=== PATIENT | male | born 1965 | race Caucasian/White ===

== ENCOUNTER 2020-11-07 16:59 | Inpatient (IN) | payer BC, SELFPAY ==
[2020-11-07] VITALS (12 sets, daily range): BP systolic 111–142; BP diastolic 65–81; PULSE 65–81; RESP 16–21; TEMP 36.6–37; O2SAT 89–100; BMI 30.9
--- NOTE | 2020-11-07 17:05 | PC.NURSE ---
1705 Metoprolol 25mg given PO 1708 Heparin 4000 U given IVP 1709 Brilinta [address] given PO Dr. Carbajal and Dr. Batres at bedside
--- NOTE | 2020-11-07 17:07 | ECG_ITS ---
Measurements Intervals [place] Rate: 66 P: 33 [place]: 155 QRS: 66 QRSD: 94 T: 35 QT: 398 QTc: 420 Interpretive Statements SINUS RHYTHM ANTEROLATERAL ST ELEVATION MYOCARDIAL INJURY- ACUTE INFERIOR ST ELEVATION MYOCARDIAL INJURY- ACUTE POSTERIOR INFARCT- ACUTE BASELINE ARTIFACT- II, III, AVF, V3-V6 ABNORMAL ECG Electronically Signed On 11-08-2020 7:01:36 CDT by Eusebio Guerrero D.O.
--- NOTE | 2020-11-07 17:07 | ED.CHESTPAIN ---
HPI - Chest Pain General Chief Complaint: Chest Pain Stated Complaint: STEMI Time Seen by Provider: 11/07/20 17:07 Source: patient and EMS Mode of arrival: EMS Limitations: no limitations History of Present Illness HPI narrative: Patient is a 55-year-old male who presents for evaluation of chest pain, STEMI called in field by EMS. Patient states chest pain has persisted over the past 2 hours with associated diaphoresis; began while he was working at home in his garden. Pain crushing in nature, rated 5/10 in severity. At the time of EMS arrival, patient is diaphoretic, reporting central chest pain. Pt given morphine, zofran, aspirin by EMS. Not much improvement in pain with morphine. Per patient, no ripping or tearing sensation to the flanks. No history of coronary artery disease. Patient does not smoke. He is not lightheaded or dizzy. Related Data Home Medications Medication Instructions Recorded Confirmed No Home Medications 11/07/20 11/07/20 Allergies Allergy/AdvReac Type Severity Reaction Status Date / Time No Known Allergies Allergy Unverified 11/07/20 17:13 Review of Systems Review of Systems: Narrative: CONSTITUTIONAL: Denies fever, chills, reports feeling sweaty ENT: Denies rhinorrhea, congestion, sore throat, or otalgia. CARDIOVASCULAR: Reports chest pain RESPIRATORY: Denies cough, no current shortness of breath GASTROINTESTINAL: Denies abdominal pain, mild nausea GENITOURINARY: Denies dysuria or hematuria. SKIN: Denies rash or itching. MUSCULOSKELETAL: Denies back pain, joint pain, or myalgia. NEUROLOGIC: Denies headache, numbness, or weakness. [facility] Surgical History Surgical History (Updated 11/07/20 @ 17:11 by Vicky Batres MD) History of hip replacement History of tonsillectomy Social History Social History Smoking status: Never smoker Alcohol intake: current Exam Narrative: Exam Narrative: GENERAL: Awake, alert, conversant, diaphoretic HEAD: Normocephalic, atraumatic. EYES: PERRLA and EOMI. ENT: Nares clear, no rhinorrhea or epistaxis. Mucous membranes moist. NECK: Supple. CHEST: No respiratory distress, breathing even and non labored HEART: Regular rate, sinus rhythm, no murmur, rubs or gallops ABDOMEN:Non distended, non tender EXTREMITIES: Normal range of motion. No edema. SKIN: Warm, dry, no rash. NEURO:No focal deficits. Alert and oriented x3 Course Vital Signs Vital signs: Vital Signs Temperature 37.0 C 11/07/20 16:59 Pulse Rate 75 11/07/20 16:59 Respiratory Rate 18 11/07/20 16:59 Blood Pressure 142/81 H 11/07/20 16:59 Pulse Oximetry 100 11/07/20 16:59 Temperature 37.0 C 11/07/20 16:59 Pulse Rate 75 11/07/20 17:00 Respiratory Rate 18 11/07/20 16:59 Blood Pressure 142/81 H 11/07/20 16:59 Pulse Oximetry 100 11/07/20 16:59 MDM - Chest Pain MDM Narrative Medical decision making narrative: Patient presented as STEMI activation from the field with confirmation of inferior STEMI on EKG. Patient arrived to our ER hemodynamically stable. At Risk Specialist and the cardiac cath team were present in the ER as well. IV access obtained by EMS, labs pending at time of transport for patient to molder labels. Patient was given Brilinta in the ER. Heparin bolus and infusion ordered. Pt had been given ASA by the EMS crew prior to arrival. Pt then taken to cardiac molder labels with ambulance assistant. Differential Diagnosis Differential diagnosis: Likely pneumothorax, stable angina, unstable angina pectoris, st elevation myocardial infarction and chest pain Medical Records Data Attestation: I reviewed the patient's medical records. Lab Data Attestation: I reviewed the patient's lab results. ECG Data EKG #1: Attestation: I personally reviewed and interpreted this ECG as follows: ECG completion date: 11/07/20 ECG completion time: 17:01 Interpretation: Rate 66, sinus rhythm, intervals normal, inferior myocardial infarction with reciproca
--- NOTE | 2020-11-07 18:13 | WPDCARDPROC ---
Cardiac Cath Procedure Note Date of procedure:: 11/07/20 Performing physician:: Pedro Carbajal MD Indication:: acute ST-elevation MA Brief clinical history:: this is a 55-year-old man with no previous history of cardiac disease who began to experience chest pain about 4 hours prior to coming into the emergency room today. Shortly after lunch time started to have retrosternal chest heaviness with some nausea he went home and thought he had an upset stomach. He fell worse through the afternoon eventually 911 was called to his home and his ECG in the field demonstrated evidence of acute ST-elevation MA. Procedure Procedure performed:: Emergency coronary angiography emergency PCI (ADILENE) to the proximal circumflex left ventriculography Sedation/Medication given:: no sedation given in the refuse laborer case start time 5:23 p.m. case end time 6:03 p.m. Access site:: right femoral artery Estimated blood loss:: 20-30 cc Procedure note:: patient was brought to the cardiac catheterization lab in the emergency setting where the right femoral triangle was prepared and draped in the usual fashion. the patient was given lidocaine infiltrated locally for anesthesia in the femoral triangle. After this the right femoral artery was punctured and using the modified Seldinger technique a 6 Kenyan vascular sheath was placed. After this left coronary angiography was done using a standard 5 Kenyan FL4 catheter. After this the intervention was carried out. Patient had received aspirin and Integrilin in the emergency room. He was anticoagulated with bolus and infusion of Angiomax for this intervention. The PCI was performed as detailed below. Following this the guiding catheter was removed in a standard 5 Kenyan JR4 catheter was used to engage and inject the right coronary artery in multiple projections. Lastly I used a 5 Kenyan angled pigtail catheter to measure left-sided hemodynamics and inject the left ventriculogram in the PRITCHETT projection. The patient following PCI did have hemodynamically stable accelerated idioventricular rhythm. He received a bolus of amiodarone as well as a bolus of lidocaine to terminate this and restore sinus rhythm. Following hindu of sinus rhythm left ventricular hemodynamics were recorded. Procedure was then terminated the sheath was sutured into position the patient was taken to the ICU post MA/PCI recovery. Patient was stable after the procedure there were no apparent complications and he left the refuse laborer with no evidence of a groin hematoma. Findings:: Hemodynamics: Central aortic pressure is 100/58 left ventricle 100/7 end-diastolic pressure 22. There is no gradient on pullback across the aortic valve. Left ventricle: The LV is normal in size in the PRITCHETT projection LV contractility is normal the ejection fraction is visually estimated to be 55-60%. The left main coronary artery is widely patent and of large caliber the left anterior descending is a medium caliber artery extending down to the apex. There is mild atherosclerosis in the proximal LAD but in no projection is there more than 20-30% stenosis. The circumflex is a large caliber vessel that is 100% occluded about 10 mm after its origin from the left main there is no antegrade flow our collateral flow to the circumflex. This is the culprit vessel. Right coronary artery is medium in caliber and is dominant to the posterior circulation most of the right coronary is free of disease there is a region of atherosclerotic stenosis from 50-60% in the 2nd portion of the RCA. There was NASIMA 3 flow in the vessel. Intervention: The left coronary artery was engaged using a 6 Kenyan CLS 3.5 guiding catheter. I used a 0.014 BMW coronary guidewire to traverse the lesion. Following this angiography showed the wire to be in a small posterior AV groove branch there was a much larger OM branch that is a much more substantial vessel. A 2nd BMW wire to traverse
--- NOTE | 2020-11-07 18:23 | P.HP_ITS ---
H&P: HPI History of Present Illness Date/Time: 11/07/20 18:23 Chief Complaint: chest pain Narrative: this is a 55-year-old man without prior cardiac history who is being seen quickly in the emergency room in the setting of acute ST-elevation myocardial infarction. The patient states that he has not had any cardiac problems before this. About 4 hours ago while he was at work he started to experience retrosternal chest pain with nausea. He thought he had a gastric problem so he went home and took some antacids and did not experience any relief. After he felt poorly for several hours he finally called 911. ECG in the field was diagnostic of acute ST-elevation [place]. In this setting he is being seen in the emergency room and plans are being made for emergency catheterization. The patient states that prior to this he does not have any exertional chest pain symptoms he has never had any palpitations syncope orthopnea PND or edema. Denies any history of other significant medical problems Review of Systems Review of Systems: ROS unobtainable: Yes unobtainable due to medical condition PMFSH Surgical History Surgical History (Updated 11/07/20 @ 17:11 by Vicky Batres MD) History of hip replacement History of tonsillectomy Social History Social History Smoking status: Never smoker Alcohol intake: current Meds Home Medications and Allergies Home Medications Medication Instructions Recorded Confirmed Type No Home Medications 11/07/20 11/07/20 History Allergies Allergy/AdvReac Type Severity Reaction Status Date / Time No Known Allergies Allergy Unverified 11/07/20 17:13 Vital Signs Vital Signs - 24 hr 11/07/20 16:59 11/07/20 17:00 Temperature 37.0 C Pulse Rate 75 75 Respiratory Rate 18 Blood Pressure 142/81 H Pulse Oximetry 100 Exam Const: General: in distress and uncomfortable Other: well-developed well- nourished white male in moderate distress with chest pain HENMT: Mouth: Yes moist mucous membranes Eyes: Sclera: sclerae normal Pupils: Equal, round and reactive pupils present Neck: Neck: supple and no JVD Resp: Effort & Inspection: normal respiratory effort Auscultation: clear to auscultation bilaterally Cardio: Rate: regular rate Rhythm: regular rhythm Other: no murmur no gallop no rub GI: GI Palp: Yes Soft to palpation Auscultation: normal bowel sounds Skin: General skin exam: normal color Neuro: Cognition (Neuro): normal cognition Extrem: General: normal to inspection Assessment and Plan Additional Plan 55-year-old man without prior medical history presenting with chest pain ECG diagnostic of acute lateral ST segment elevation [place]. Plans are being made for emergency catheterization and revascularization as indicated by those findings Pedro Carbajal MD [facility]
[2020-11-07 18:51] LABS: Basophils Percent Auto 0.4 % (0.2-1.2); Eosinophils Percent Auto 0.2 % (0-4.4); Hematocrit 47.4 % (42.0-52.0); Hemoglobin 15.8 g/dL (14.0-18.0); Immature Granulocyte Absolute 0.02 K/mm3 (0.00-0.031); Immature Granulocyte Percent A 0.2 % (0-0.5); Lymphocytes Absolute Auto 1.13 K/mm3 (0.9-3.2); Lymphocytes Percent Auto 11.2 % (18.3-44.2); Mean Corpuscular HGB Conc 33.3 g/dl (32-36); Mean Corpuscular Hemoglobin 29.7 pg (26-34); Mean Corpuscular Volume 89.1 fl (80-100); Mean Platelet Volume 8.7 fl (7.4-10.4); Monocytes Absolute Auto 0.5 K/mm3 (0.1-0.6); Monocytes Percent Auto 4.6 % (2.6-8.5); Neutrophils Absolute Auto 8.4 K/mm3 (1.3-6.7); Neutrophils Percent Auto 83.4 % (45.5-73.1); Platelet Count Result 218 k/mm3 (150-375); Red Blood Count 5.32 M/mm3 (4.6-6.20); Red Cell Distribution Width 12.7 % (11.5-14.5); White Blood Count 10.1 K/mm3 (4.5-10.0)
--- NOTE | 2020-11-07 18:51 | ADMGEN ---
This patient, Bartolo Connolly, was admitted to Intensive Care Unit-10. Patient/family oriented to hospital policies and general routines including ID bracelet, bed and alarms, visiting hours, pain management, procedures, bathroom and other care routines, personal items, smoking policy, room service/diet, and visiting hours. Information on how to activate the Rapid Response Team has been discussed. Patient/Family are encouraged to report perceived risks to care and to ask questions if they do not understand what they are told or what they should do.
[2020-11-07 19:01] LABS: INR 2.4; Prothrombin Time 26.6 Seconds (11.1-14.7)
[2020-11-07 19:09] LABS: Alanine Aminotransferase 31 U/L (4-50); Albumin Level 4.2 g/dL (3.5-5.1); Alkaline Phosphatase 64 U/L (38-126); Anion Gap 8 mmol/L (8-16); Aspartate Amino Transferase 37 U/L (17-59); Bilirubin,Total 0.8 mg/dL (0.2-1.3); Blood Urea Nitrogen 23 mg/dL (9-20); Calcium 8.6 mg/dL (8.4-10.2); Carbon Dioxide 25 mmol/L (22-30); Chloride 106 mmol/L (98-107); Cholesterol 186 mg/dL (0-200); Estimated CRCL calculation 98 ml/min; Estimated Glomerular Filt Rate > 60; Glucose 153 mg/dL (75-110); HDL Direct 49 mg/dL; Sodium 139 mmol/L (137-145); Triglycerides 60 mg/dL (<150)
[2020-11-07 19:19] LABS: LDL Cholesterol Direct 127 mg/dL
[2020-11-07 19:31] LABS: Partial Thromboplastin Time > 200.0 SECONDS (22.3-36.8)
[2020-11-07] MEDS: SODIUM CHLORIDE 0.9% IV 1,000 ML 125 ML IV CONT (19:32)
[2020-11-07 19:33] LABS: Troponin I 0.721 ng/mL (0.000-0.034)
[2020-11-07] MEDS: METOPROLOL SUCCINATE EXT REL 25 MG TABCR PO (19:42)
[2020-11-08] VITALS (14 sets, daily range): BP systolic 104–143; BP diastolic 62–77; PULSE 56–80; RESP 15–24; TEMP 36.5–37.4; O2SAT 91–97
--- NOTE | 2020-11-08 | ECHO_ITS ---
Patient Info Name: Bartolo Connolly Age: 55 years : 1965 Gender: Male Ht: 71 in Wt: 223 lbs BSA: 2.28 m2 HR: 62 bpm BP: 116 / 76 mmHg Heart Rhythm: Sinus Rhythm Technical Quality: Good Exam Date: 11/08/2020 9:48 AM Exam Location: [facility] Patient Status: Inpatient Admit Date: 11/07/2020 Staff Ordering Physician: Jairo Ruiz MD Film Rental Clerk: Yasmany Epperson, GORDY, RT Attending Provider: Carlos Barton MD Exam Type: CA echo dop color flow w con Study Info Indications I21.3 - ST elevation (STEMI) myocardial infarction of unspecified site Complete two-dimensional, color flow and Doppler transthoracic echocardiogram is performed with contrast to opacify the left ventricle and to improve the deliniation of the left ventricle endocardial borders. Strain analysis performed. Summary 1. Technically difficult study. Definity contrast enhancement administered to improve regional wall motion assessment. Left ventricular chamber dimension is normal. 2. Left ventricular systolic function is lower limits of normal, estimated at 50-55%. Moderate hypokinesis of the inferolateral wall. 3. There is mildly increased left ventricular wall thickness. 4. The left ventricular diastolic function is grade II diastolic dysfunction. 5. There is trace tricuspid valve regurgitation. 6. Unable to estimate PA systolic pressure due to poor spectral resolution of tricuspid regurgitant jet velocity. Left Ventricle Technically difficult study. Definity contrast enhancement administered to improve regional wall motion assessment. Left ventricular chamber dimension is normal. Left ventricular systolic function is lower limits of normal, estimated at 50-55%. Moderate hypokinesis of the inferolateral wall. There is mildly increased left ventricular wall thickness. The left ventricular diastolic function is grade II diastolic dysfunction. Global longitudinal strain is mildly elevated at -14 %. Right Ventricle Right ventricular chamber dimension is normal. Right ventricular systolic function is normal. Left Atria Left atrial chamber dimension is mildly enlarged. Right Atria Right atrial chamber dimension is normal. Aortic Valve The aortic valve is trileaflet. There is no aortic valve stenosis. There is no aortic valve regurgitation. Pulmonic Valve The pulmonic valve is normal. There is trace pulmonic regurgitation. Mitral Valve The mitral valve has normal leaflets. There is trace mitral valve regurgitation. The mitral valve annulus is mildly calcified. Tricuspid Valve The tricuspid valve leaflets are normal. There is trace tricuspid valve regurgitation. Unable to estimate PA systolic pressure due to poor spectral resolution of tricuspid regurgitant jet velocity. Pericardium/Pleural The pericardium appears normal. There is no pericardial effusion. Inferior Vena Cava Normal inferior vena cava with >50% collapse upon inspiration consistent with normal right atrial pressure, 5 mmHg. Aorta The aortic root size at the sinus of Valsalva is normal. Left Ventricular Outflow Tract Name Value Normal LVOT 2D LVOT Diameter 1.94 cm LVOT Doppler
[2020-11-08] MEDS: HYDROcodone/acetaminophen (*CRX) 5-325 MG TABLET 1 TAB PO (02:38)
--- NOTE | 2020-11-08 05:11 | ECG_ITS ---
Measurements Intervals [place] Rate: 58 P: 26 [place]: 164 QRS: 62 QRSD: 93 T: 52 QT: 415 QTc: 408 Interpretive Statements SINUS BRADYCARDIA BORDERLINE ECG Electronically Signed On 11-08-2020 11:47:06 CDT by Eusebio Guerrero D.O.
--- NOTE | 2020-11-08 08:46 | WPDCNINT ---
Assessment and Plan Assessment and plan (1) ST elevation (STEMI) myocardial infarction: Qualifiers: Involved coronary artery: other inferior wall coronary artery Qualified Code(s): I21.19 - ST elevation (STEMI) myocardial infarction involving other coronary artery of inferior wall Code(s): I21.3 - ST elevation (STEMI) myocardial infarction of unspecified site Status: Acute Assessment and Plan: Status post PCI and drug-eluting stent placement to proximal circumflex Continue aspirin lisinopril metoprolol Brilinta and Crestor Check echocardiogram today Encourage activity Incentive spirometry Transfer out of ICU today (2) Ventricular arrhythmia: Code(s): I49.9 - Cardiac arrhythmia, unspecified Status: Acute Assessment and Plan: Asymptomatic/hemodynamically stable accelerated idioventricular rhythm that occurred during catheterization that was terminated with boluses of amiodarone and lidocaine. No recurrence in ICU since yesterday Check electrolytes Head Packager Consult Note Consult date: 11/08/20 Time Seen: 08:30 HPI: Bartolo Connolly is a 55 year old male chief complaint of chest pain. Patient was working in the [employer] when he started feeling sick. Symptoms started with nausea but later turned into chest pressure. Pain was 5/10 severe pressure in quality associated with tingling in both hands and nausea vomiting. No shortness of breath. Prior to that patient was feeling fine. Patient presented to ER and was found to be having a ST-elevation [place]. And drug-eluting stent was placed to proximal circumflex. Asymptomatic/hemodynamically stable accelerated idioventricular rhythm that occurred during reperfusion that was terminated with boluses of amiodarone and lidocaine. Patient admitted to ICU postprocedure for further evaluation management. This morning he feels good and denies any chest pain or shortness of breath. Patient denies fever, cough, nausea vomiting, abdominal pain,, diarrhea, headache or constipation. Review system was positive for chronic back pain which he states is worse because of laying in bed since coming to the hospital. Review of Systems Review of Systems: All systems reviewed & are unremarkable except as noted in HPI and below (HPI) [facility] Surgical History Surgical History History of hip replacement History of tonsillectomy Family History Family History Father Heart disease Social History Social History Smoking status: Never smoker Alcohol intake: never Substance use: never Substance use type: does not use Gender identity (if verbalized by the patient): Male Spiritual care concerns: No Meds Home Medications and Allergies Home Medications Medication Instructions Recorded Confirmed Type multivit with min-folic acid 1 tablet PO DAILY 11/07/20 11/07/20 History [Adult One Daily Multivitamin] naproxen sodium [Aleve] 440 mg PO DAILY 11/07/20 11/07/20 History omega-3 fatty acids-vitamin E 1 cap PO DAILY 11/07/20 11/07/20 History [Fish Oil] Allergies Allergy/AdvReac Type Severity Reaction Status Date / Time No Known Allergies Allergy Unverified 11/07/20 17:13 Vital Signs Vital Signs - 24 hr 11/07/20 16:59 11/07/20 17:00 11/07/20 17:11 Temperature 37.0 C Pulse Rate 75 75 75 Respiratory Rate 18 18 Blood Pressure 142/81 H 142/81 H Pulse Oximetry 100 100 11/07/20 18:22 11/07/20 18:52 11/07/20 19:42 Temperature 36.9 C Pulse Rate 70 71 78 Respiratory Rate 21 H 19 Blood Pressure 129/69 135/76 Pulse Oximetry 89 L 97 11/07/20 19:52 11/07/20 20:00 11/07/20 22:00 Temperature 36.6 C Pulse Rate 71 79 69 Respiratory Rate 18 16 16 Blood Pressure 133/78 136/77 116/65 Pulse Oximetry 97 96 96 11/07/20 23:01 11/07/20 23:16 11/07/20 23:52 Temperature
--- NOTE | 2020-11-08 09:08 | PM.PNCARD ---
Progress Note: A&P Additional Plan 55-year-old man with: Acute lateral myocardial infarction presenting yesterday with total occlusion of the proximal circumflex which was successfully addressed with PCI deploying a large drug-eluting stent. He is very stable this morning and looks very well. There were not unexpectedly some ventricular arrhythmias overnight which were asymptomatic and self-limited. Plan today will be to move him out of ICU increases activity levels I would consider discharge tomorrow if all is stable. Pedro Carbajal MD [facility] Subjective Date/time seen: Date of service: 11/08/20 09:08 Interval history: 55-year-old man with: Coronary artery disease presenting yesterday with acute ST-elevation myocardial infarction. Emergency catheterization demonstrated acute thrombotic occlusion of the proximal circumflex. Patient presented about 4 hours into symptom onset yesterday. The culprit lesion was successfully addressed with PTCA and stenting of his a large caliber proximal circumflex. He does have some mild proximal LAD and mid RCA disease that does not appear to be flow-limiting. He is stable this morning has no ischemic symptoms. He did have some nonsustained ventricular arrhythmias overnight which were self-limited and asymptomatic. Exam Const: General: comfortable and no acute distress HENMT: Mouth: Yes moist mucous membranes Eyes: Sclera: sclerae normal Pupils: Equal, round and reactive pupils present Neck: Neck: supple and no JVD Other: Carotid pulses are normal no bruits are audible Resp: Effort & Inspection: normal respiratory effort Auscultation: clear to auscultation bilaterally Cardio: Rate: regular rate Rhythm: regular rhythm Other: PMI nondisplaced no murmur no gallop no rub GI: GI Palp: Yes Soft to palpation Auscultation: normal bowel sounds Skin: General skin exam: normal color Neuro: Cognition (Neuro): normal cognition Extrem: General: normal to inspection Objective Data Vital Signs Vital Signs: Vital Signs - 24 hr 11/07/20 16:59 11/07/20 17:00 11/07/20 17:11 Temperature 37.0 C Pulse Rate 75 75 75 Respiratory Rate 18 18 Blood Pressure 142/81 H 142/81 H Pulse Oximetry 100 100 11/07/20 18:22 11/07/20 18:52 11/07/20 19:42 Temperature 36.9 C Pulse Rate 70 71 78 Respiratory Rate 21 H 19 Blood Pressure 129/69 135/76 Pulse Oximetry 89 L 97 11/07/20 19:52 11/07/20 20:00 11/07/20 22:00 Temperature 36.6 C Pulse Rate 71 79 69 Respiratory Rate 18 16 16 Blood Pressure 133/78 136/77 116/65 Pulse Oximetry 97 96 96 11/07/20 23:01 11/07/20 23:16 11/07/20 23:52 Temperature Pulse Rate 65 67 65 Respiratory Rate 17 17 18 Blood Pressure 114/74 114/73 111/65 Pulse Oximetry 94 94 95 11/08/20 00:00 11/08/20 00:16 11/08/20 02:00 Temperature 36.6 C Pulse Rate 64 67 65 Respiratory Rate 17 18 16 Blood Pressure 111/69 118/71 Pulse Oximetry 95 93 91 11/08/20 04:00 11/08/20 06:00 11/08/20 08:00 Temperature 36.5 C 36.8 C Pulse Rate 64 63 66 Respiratory Rate 19 19 21 H Blood Pressure 121/75 112/70 123/75 Pulse Oximetry 92 93 91 Intake/Output Intake/Output: Intake & Output 11/05/20 11/06/20 11/07/20 11/08/20 23:59 23:59 23:59 23:59 Intake Total 250 Output Total 700 Balance -450 Meds/Results Medications: Active Medications Generic Name Dose Route Start Last Admin Trade Name Freq PRN Reason Stop Dose Admin Hydrocodone Bitart/Acetaminophen 1 tab 11/08/20 02:21 11/08/20 02:38 Hydrocodone/Acetaminophen (*Crx) 5-325 Mg Tablet PO 1 tab Q4H PRN Administration Pain Rated 4-6 Hydrocodone Bitart/Acetaminophen 2 tab 11/08/20 02:21 Hydrocodone/Acetaminophen (*Crx) 5-325 Mg Tablet PO Q4H PRN Pain Rated 7-10 Aspirin 81 mg 11/08/20 08:00 Aspirin 81 Mg Chewable Tablet PO DAILY@0800 RICA Lisinopril 2.5 mg 11/08/20 09:00 Lisinopril 2.5 Mg Tablet PO DAILY RICA Metoprolol Succ
[2020-11-08 10:06] LABS: Anion Gap 7 mmol/L (8-16); Blood Urea Nitrogen 19 mg/dL (9-20); Carbon Dioxide 23 mmol/L (22-30); Chloride 105 mmol/L (98-107); Estimated CRCL calculation 110 ml/min; Estimated Glomerular Filt Rate > 60; Glucose 185 mg/dL (75-110); Magnesium 1.7 mg/dL (1.6-2.3); Potassium 4.3 mmol/L (3.4-5.0); Sodium 135 mmol/L (137-145)
[2020-11-08] MEDS: PERFLUTREN LIPID MICROSPHERES 1.5 ML VIAL DILUTED TO 10 ML TOTAL VOLUME IV PUSH (10:18)
[2020-11-08] MEDS: ASPIRIN 81 MG CHEWABLE TABLET PO (10:32)
[2020-11-08] MEDS: METOPROLOL SUCCINATE EXT REL 25 MG TABCR PO (10:32)
[2020-11-08] MEDS: TICAGRELOR 90 MG TABLET PO ×2 (10:32→20:06)
[2020-11-08] MEDS: ROSUVASTATIN 10 MG TABLET PO (10:33)
[2020-11-08] MEDS: lisinopriL 2.5 MG TABLET PO (10:33)
--- NOTE | 2020-11-08 11:15 | PC.NURSE ---
Assisted patient to chair, this was first time patient had been out of bed. Patient stated that he began to feel dizzy, and ultimately experienced a brief vasovagal response, lasting less than 5 seconds in length. Patient was assisted back to bed without incident. Patient denied chest pain, or shortness of breath. Vital signs: 56 hr, 20 r, 92% ra, 104/69. Dr. Carbajal notified. Will continue to monitor closely.
[2020-11-09] VITALS (19 sets, daily range): BP systolic 100–126; BP diastolic 55–87; PULSE 54–150; RESP 12–20; TEMP 36.1–36.8; O2SAT 96–100
[2020-11-09] MEDS: TICAGRELOR 90 MG TABLET PO (08:36)
[2020-11-09] MEDS: ASPIRIN 81 MG CHEWABLE TABLET PO (08:36)
[2020-11-09] MEDS: METOPROLOL SUCCINATE EXT REL 25 MG TABCR PO (08:37)
[2020-11-09] MEDS: ROSUVASTATIN 10 MG TABLET PO (08:37)
[2020-11-09] MEDS: lisinopriL 2.5 MG TABLET PO (08:37)
--- NOTE | 2020-11-09 09:00 | PC.NURSE ---
Dr. Barton notified of Afib
[2020-11-09] MEDS: METOPROLOL TARTRATE INJ 5 MG/5 ML VIAL IV PUSH (09:10)
--- NOTE | 2020-11-09 09:11 | PC.NURSE ---
Patient to to bedside. No c/o chest pain or dizziness.
--- NOTE | 2020-11-09 10:40 | PC.NURSE ---
Dr. Del Castillo to bedside. Plan of care for Afib discussed.
--- NOTE | 2020-11-09 10:47 | PM.PNCARD ---
Progress Note: A&P Additional Plan 1-in new onset atrial fibrillation: Will give 2 g of magnesium followed by 150 mg IV amiodarone with plan to convert him to sinus rhythm. The risk of thromboembolism is very minimal given that the AFib has been there for only a couple hours. He goes in and out of atrial fibrillation. Will plan to keep him on amiodarone 200 mg b.i.d. with a plan to keep it for about a month and then assess if we can discontinue the amiodarone. I will give him 1 of the new anticoagulants again this is probably going to be short-term for the next 1-2 months. To minimize risk of bleeding outweighs switch Brilinta to Plavix. 2-in regards to STEMI, status post stenting of the left circumflex artery. Doing well. No chest pain. Continue low-dose Neil inhibitor, low-dose beta-jewell Subjective Date/time seen: Date of service 11/09/20 10:47 Interval history: 55-year-old man with: Coronary artery disease presenting yesterday with acute ST-elevation myocardial infarction. Emergency catheterization demonstrated acute thrombotic occlusion of the proximal circumflex. Patient presented about 4 hours into symptom onset yesterday. The culprit lesion was successfully addressed with PTCA and stenting of his a large caliber proximal circumflex. He does have some mild proximal LAD and mid RCA disease that does not appear to be flow-limiting. 11/09/2020-at 8:15 a.m. this morning he decided to go into AFib with RVR. He is asymptomatic. Denies chest pain, shortness of breath, palpitations. Review of Systems Constitutional: Constitutional: Denies chills and Denies fatigue Eyes: Eyes: Denies blurry vision ENT: Denies nasal congestion Cardiovascular: Cardiovascular: Denies chest pain, Denies diaphoresis and Denies lightheadedness Respiratory: Respiratory: Denies hemoptysis and Denies dyspnea Gastrointestinal: Gastrointestinal: Denies nausea and Denies vomiting Genitourinary: Genitourinary: Denies dysuria Musculoskeletal: Musculoskeletal: Denies joint swelling Integumentary/Breasts: Skin/Breast: Denies rash and Denies skin pain Neurologic: Denies confusion Psychiatric: Psychiatric: Reports no additional psychiatric complaints Endocrine: Endocrine: Denies fatigue Allergic/Immunologic: Allergic/Immunologic: Denies GI upset with certain foods Exam Const: General: comfortable, no acute distress, in distress and uncomfortable Other: well-developed well-nourished white male in moderate distress with chest pain HENMT: Mouth: Yes moist mucous membranes Eyes: Sclera: sclerae normal Pupils: Equal, round and reactive pupils present Neck: Neck: supple and no JVD Other: Carotid pulses are normal no bruits are audible Resp: Effort & Inspection: normal respiratory effort Auscultation: clear to auscultation bilaterally Cardio: Rate: regular rate Rhythm: abnormal rhythm Other: PMI nondisplaced no murmur no gallop no rub GI: Auscultation: normal bowel sounds Skin: General skin exam: normal color Neuro: Cranial nerves: Yes Equal, round and reactive pupils present Cognition (Neuro): normal cognition Extrem: General: normal to inspection Objective Data Vital Signs Vital Signs: Vital Signs - 24 hr 11/08/20 12:00 11/08/20 14:00 11/08/20 16:00 Temperature 36.9 C 36.7 C Pulse Rate 61 69 68 Respiratory Rate 18 24 H 15 Blood Pressure 117/62 120/69 143/77 H Pulse Oximetry 91 95 97 11/08/20 18:00 11/08/20 20:00 11/08/20 22:00 Temperature 37.4 C Pulse Rate 61 76 80 Respiratory Rate 19 Blood Pressure 125/70 Pulse Oximetry 97 11/09/20 00:00 11/09/20 02:00 11/09/20 04:00 Temperature 36.6 C Pulse Rate 57 L 60 64 Respiratory Rate 14 14 Blood Pressure 114/68 Pulse Oximetry 96 96 11/09/20 06:00 11/09/20 08:00 11/09/20 08:37 Temperature 36.1 C L Pulse Rate 79 72 129 H Respiratory Rate 12 Blood Pressure 116/70 119/63 Pulse Oximetry 100 11/09/20 09:10 Temperature Pulse Rate 15
[2020-11-09] MEDS: MAGNESIUM SULF 2 GM/WATER 50ML 2 GM/50 ML BAG IVPB (10:55)
[2020-11-09] MEDS: AMIODARONE 150 MG/D5W 100 ML 150 MG/100 ML BAG 600 MG IV CONT (11:53)
[2020-11-09] MEDS: AMIODARONE HCL 200 MG TABLET PO ×2 (12:56→16:34)
[2020-11-09] MEDS: CLOPIDOGREL BISULFATE 75 MG TABLET PO (16:33)
--- NOTE | 2020-11-09 18:38 | PC.NURSE ---
This patient, Bartolo Connolly, was transferred to [facility] via wheelchair on 11/09/20 at 1825. Personal belongings sent with patient. Report given to SATINDER Penn. Appropriate documentation sent with patient.
[2020-11-09] MEDS: APIXABAN 5 MG TABLET PO (20:27)
[2020-11-10] VITALS (10 sets, daily range): BP systolic 98–122; BP diastolic 57–69; PULSE 57–72; RESP 16–20; TEMP 36.3–36.6; O2SAT 99–100
[2020-11-10] MEDS: lisinopriL 2.5 MG TABLET PO (09:22)
[2020-11-10] MEDS: AMIODARONE HCL 200 MG TABLET PO (09:22)
[2020-11-10] MEDS: APIXABAN 5 MG TABLET PO (09:22)
[2020-11-10] MEDS: ASPIRIN 81 MG CHEWABLE TABLET PO (09:22)
[2020-11-10] MEDS: CLOPIDOGREL BISULFATE 75 MG TABLET PO (09:23)
[2020-11-10] MEDS: METOPROLOL SUCCINATE EXT REL 25 MG TABCR PO (09:23)
[2020-11-10] MEDS: ROSUVASTATIN 10 MG TABLET PO (09:23)
--- NOTE | 2020-11-10 09:54 | PM.PNCARD ---
Progress Note: A&P Additional Plan 55-year-old man with: Acute myocardial infarction resulting from proximal occlusion of the circumflex intervened on successfully with emergency PCI. Patient had an episode of atrial fibrillation yesterday morning which was minimally symptomatic. This does complicate his management since he is now on amiodarone as well as systemic anticoagulation. The patient feels well this morning and is hoping to be discharged. Spoke to him at length about the fact that he is now on so-called triple therapy which does increase his risk for hemorrhagic complications. My expectation and hope is that this will be self-limited atrial fibrillation in the setting should not be a ongoing arrhythmia that needs to be treated. For now however this will be his medical regimen. Plan will be to discharge him home on the current regimen and I will see him in the office for follow-up and within the next 1-3 months if he is having no further arrhythmias the amiodarone and apixaban will be discontinued. Questions were answered in terms of activity restrictions at this point and I plan to discharge him this morning on this regimen. Pedro Carbajal MD [facility] Subjective Date/time seen: Date of service: 11/10/20 09:54 Interval history: 55-year-old man with: Coronary artery disease presenting yesterday with acute ST-elevation myocardial infarction. Emergency catheterization demonstrated acute thrombotic occlusion of the proximal circumflex. Patient presented about 4 hours into symptom onset yesterday. The culprit lesion was successfully addressed with PTCA and stenting of his a large caliber proximal circumflex. He does have some mild proximal LAD and mid RCA disease that does not appear to be flow-limiting. 11/09/2020-at 8:15 a.m. this morning he decided to go into AFib with RVR. He is asymptomatic. Denies chest pain, shortness of breath, palpitations. 11/10/2020: Patient is asymptomatic this morning feels well and offers no complaints. The episode of atrial fibrillation yesterday morning was terminated within several hours of starting him on intravenous amiodarone. On sinus rhythm since then and asymptomatic. Exam Const: General: comfortable, no acute distress, in distress and uncomfortable; No confusion Orientation/consciousness: No confusion Other: well-developed well-nourished white male in moderate distress with chest pain HENMT: Mouth: Yes moist mucous membranes Eyes: Sclera: sclerae normal Pupils: Equal, round and reactive pupils present Neck: Neck: supple and no JVD Other: Carotid pulses are normal no bruits are audible Resp: Effort & Inspection: normal respiratory effort Auscultation: clear to auscultation bilaterally Cardio: Rate: regular rate Rhythm: abnormal rhythm Other: PMI nondisplaced no murmur no gallop no rub GI: Auscultation: normal bowel sounds Skin: General skin exam: normal color Neuro: General: No confusion Cranial nerves: Yes Equal, round and reactive pupils present Cognition (Neuro): normal cognition Extrem: General: normal to inspection Objective Data Vital Signs Vital Signs: Vital Signs - 24 hr 11/09/20 10:00 11/09/20 11:53 11/09/20 12:00 Temperature 36.2 C L Pulse Rate 81 131 H 94 Respiratory Rate 12 Blood Pressure 106/87 106/87 Pulse Oximetry 100 11/09/20 12:07 11/09/20 12:56 11/09/20 14:00 Temperature Pulse Rate 94 71 65 Respiratory Rate Blood Pressure 106/87 Pulse Oximetry 11/09/20 16:00 11/09/20 16:34 11/09/20 18:00 Temperature 36.4 C L Pulse Rate 66 68 70 Respiratory Rate 20 Blood Pressure 100/74 Pulse Oximetry 100 11/09/20 20:00 11/09/20 22:00 11/09/20 23:26 Temperature 36.3 C L 36.8 C Pulse Rate 62 66 54 L Respiratory Rate 20 20 Blood Pressure 126/58 L 102/55 L Pulse Oximetry 98 96 11/10/20 00:00 11/10/20 01:57 11/10/20 04:00 Temperature 36.6 C Pulse Rate 59 L 57 L 62 Respiratory Rate 20 Blood Pr
--- NOTE | 2020-11-10 11:06 | PM.DS ---
DS: Admitting Diagnosis Admitting Diagnosis Admitting Diagnosis: acute ST segment elevation [place] DS: Discharge Diagnosis Discharge Diagnosis (1) ST elevation (STEMI) myocardial infarction: Qualifiers: Involved coronary artery: other inferior wall coronary artery Qualified Code(s): I21.19 - ST elevation (STEMI) myocardial infarction involving other coronary artery of inferior wall Code(s): I21.3 - ST elevation (STEMI) myocardial infarction of unspecified site Status: Acute (2) Atrial fibrillation with RVR: Code(s): I48.91 - Unspecified atrial fibrillation Status: Acute DS: Summary Hospital Course Reason for hospitalization: acute ST-elevation [place] Hospital Course: this is a 55-year-old man who presented to the emergency room with chest pain that began about 4 hours prior to presentation. He had obvious lateral ST-elevation [place] by ECG criteria and it was brought from the emergency room to the cardiac labor contract analyst emergently. He had total occlusion of the proximal circumflex as the target lesion. He had no other significant coronary lesions. He underwent successful revascularization as detailed in the cardiac labor contract analyst report receiving a 3.5 mm drug-eluting stent to the stenosis with an excellent anatomical result. Procedure was uncomplicated. He spent the 1st 24 hours after this in the ICU had no post AZ complications. On the 2nd day after the procedure the patient into atrial fibrillation which was minimally symptomatic. The patient was treated with intravenous amiodarone and about 2-3 hours converted back to sinus rhythm. For this reason apixaban was added to his regimen and he was transitioned from Brilinta to clopidogrel for anti-platelet therapy. Today he is ambulatory in sinus rhythm is asymptomatic and appears to be a good candidate for discharge. Status at Discharge Functional status at discharge: independent ambulation Overall status at discharge: patient is back to baseline Time Spent with Patient Time attestation: Total time spent providing and/or coordinating discharge services: Time spent: Greater than 30 minutes Exam Const: General: comfortable and no acute distress HENMT: Mouth: Yes moist mucous membranes Eyes: Sclera: sclerae normal Pupils: Equal, round and reactive pupils present Neck: Neck: supple and no JVD Other: Carotid pulses normal no bruits are audible Resp: Effort & Inspection: normal respiratory effort Auscultation: clear to auscultation bilaterally Cardio: Rate: regular rate Rhythm: regular rhythm Other: PMI nondisplaced no murmur no gallop no rub GI: GI Palp: Yes Soft to palpation Auscultation: normal bowel sounds Skin: General skin exam: normal color Neuro: General: gait normal Extrem: General: normal to inspection Discharge Plan Discharge Attending physician on discharge: Pedro Carbajal Discharging Clinician: Pedro Carbajal Anticipated Discharge Date/Time: 11/10/20 11:17 Patient Disposition: Home, Self-Care Activity: as tolerated and other - see discharge instructions Diet: heart healthy Discharge Instructions: patient is to restrict himself to sedentary household activity and no lifting more than 20 lb until seen in follow-up in the office. Patient Instructions: Antibiotic Form, Metoprolol (By mouth), Lisinopril (By mouth), Aspirin (By mouth), Amiodarone (By mouth), Clopidogrel (By mouth), Rosuvastatin (By mouth), Ticagrelor (By mouth), Apixaban (By mouth), Heart Attack (IP), A-fib (Atrial Fibrillation) (DC), Acute Coronary Syndrome (GEN) Stand Alone Forms: General Discharge Information Follow-up/Referrals: Rosalino Mccormick MD [Primary Care Provider] - Discharge Medications: New lisinopril 2.5 mg Tablet 2.5 mg PO DAILY Qty: 30 RF: 5 rosuvastatin [Crestor] 10 mg Tablet 10 mg PO DAILY Qty: 30 RF: 5 amiodarone [Pacerone] 200 mg Tablet 200 mg PO BID Qty: 60 RF: 2 aspirin [Children's Aspir
== END 2020-11-10 15:15 | disposition home or self-care (01) | DRG 247 ==
LOC: ANHED 17:07 → ANHICU 17:12 → ANHIMU 11-09 19:31 → ANHICU 11-13 14:47 → ANHIMU 11-13 14:47
PROVIDERS: Internal Medicine; Admitting Provider Specialist; Emergency Provider Emergency Medicine; PCP Family Medicine; Visit Provider Specialist
PROC: 4A023N7 Measurement of Cardiac Sampling and Pressure, Left Heart, Percutaneous Approach (ICD-10-PCS; CPT 93452; principal; 2020-11-07 17:05)
PROC: 027034Z Dilation of Coronary Artery, One Artery with Drug-eluting Intraluminal Device, Percutaneous Approach (ICD-10-PCS; 2020-11-07 17:05)
DX: I21.19 ST elevation (STEMI) myocardial infarction involving other coronary artery of inferior wall (principal); I48.91 Unspecified atrial fibrillation; Z96.649 Presence of unspecified artificial hip joint
CPT/HCPCS: 36415; 80048; 80053; 80061; 83735; 84484; 85025; 85610; 85730; 86850; 86900; 86901; 93005; 93458; 99285; A9270; C1725; C1769; C1874; C1887; C1894; C8929; C9606; J0282; J0583; J1644; J2001; J3475; J7030; J7040; Q9957

== ENCOUNTER 2020-12-05 09:22 | Outpatient (RCR) | payer BC, SELFPAY ==
[2020-12-05 09:33] VITALS: BMI 29.8
== END 2021-02-20 09:16 | disposition home or self-care (01) ==
LOC: ANHDMC 09:22
PROVIDERS: PCP Family Medicine; Referring Provider Family Medicine; Visit Provider Family Medicine
DX: E66.9 Obesity, unspecified (principal); I48.91 Unspecified atrial fibrillation; I25.10 Atherosclerotic heart disease of native coronary artery without angina pectoris; Z71.3 Dietary counseling and surveillance
CPT/HCPCS: 97802

== ENCOUNTER 2020-12-21 16:30 | Outpatient (RCR) | payer BC, SELFPAY ==
[2020-12-07 12:09] VITALS: PULSE 45
--- NOTE | 2020-12-18 10:42 | PCCPR ---
Patient called and cancelled today's exercise session due to a conflict with another appointment.
--- NOTE | 2020-12-25 16:07 | PCCPR ---
pt likely [facility]xl rehab this week due to busy mowing and golf league in [place]. said he will probably come wed if it rains
--- NOTE | 2021-01-02 16:07 | PCCPR ---
Maverick has attended 4 cardiac rehab session and is discharging early from the program due to work schedule and inability to attend.
== END 2021-01-03 17:25 | disposition home or self-care (01) ==
LOC: ANHCPREHAB 16:30
PROVIDERS: PCP Family Medicine; Visit Provider Specialist
DX: Z95.5 Presence of coronary angioplasty implant and graft (principal); I25.2 Old myocardial infarction
CPT/HCPCS: 93798

== ENCOUNTER 2021-01-31 09:48 | Outpatient (CLI) | payer BC, SELFPAY ==
--- NOTE | ~2021-01-31 | XR_ITS ---
EXAMINATION: XR shoulder RT min 2V DATE: 01/31/2021 10:21 INDICATION: Right shoulder pain. TECHNIQUE: 4 views of right shoulder were obtained. COMPARISON: None. FINDINGS: Bone alignment is normal. No fracture. Glenohumeral joint is normal. There is moderate acro mioclavicular joint osteoarthritis. IMPRESSION: 1. Moderate right acromioclavicular joint osteoarthritis. Reviewed, dictated and finalized at location A.
--- NOTE | ~2021-01-31 | XR_ITS ---
EXAMINATION: XR shoulder LT min 2V DATE: 01/31/2021 10:20 INDICATION: Left shoulder pain. TECHNIQUE: 4 views of left shoulder were obtained. COMPARISON: None. FINDINGS: Bone alignment is normal. No fracture. Glenohumeral joint is normal. There is moderate acro mioclavicular joint osteoarthritis. IMPRESSION: 1. Moderate left acromioclavicular joint osteoarthritis. Reviewed, dictated and finalized at location A.
--- NOTE | ~2021-01-31 | XR_ITS ---
EXAMINATION: XR hip LT min 2V DATE: 01/31/2021 10:20 INDICATION: Left hip pain. TECHNIQUE: 3 views of left hip were obtained. COMPARISON: None. FINDINGS: Bone alignment is normal. No fracture. There is moderate left hip osteoarthritis. IMPRESSION: 1. Moderate left hip osteoarthritis. Reviewed, dictated and finalized at location A.
== END 2021-01-31 09:49 | disposition home or self-care (01) ==
PROVIDERS: PCP Family Medicine; Visit Provider Nurse Practitioner Family
DX: M25.511 Pain in right shoulder (principal); M25.552 Pain in left hip; M25.512 Pain in left shoulder; M16.12 Unilateral primary osteoarthritis, left hip; M19.012 Primary osteoarthritis, left shoulder; M19.011 Primary osteoarthritis, right shoulder
CPT/HCPCS: 73030; 73502

== ENCOUNTER 2021-05-25 08:48 | Outpatient (CLI) | payer BC, SELFPAY ==
[2021-05-25 09:12] LABS: Hematocrit 45.8 % (42.0-52.0); Hemoglobin 15.4 g/dL (14.0-18.0); Mean Corpuscular HGB Conc 33.6 g/dl (32-36); Mean Corpuscular Hemoglobin 31.8 pg (26-34); Mean Corpuscular Volume 94.4 fl (80-100); Mean Platelet Volume 8.4 fl (7.4-10.4); Platelet Count Result 230 k/mm3 (150-375); Red Blood Count 4.85 M/mm3 (4.6-6.20); Red Cell Distribution Width 12.6 % (11.5-14.5); White Blood Count 5.4 K/mm3 (4.5-10.0)
[2021-05-25 09:26] LABS: Alanine Aminotransferase 21 U/L (4-50); Albumin Level 4.8 g/dL (3.5-5.1); Alkaline Phosphatase 51 U/L (38-126); Anion Gap 9 mmol/L (8-16); Aspartate Amino Transferase 25 U/L (17-59); Bilirubin,Total 1.1 mg/dL (0.2-1.3); Blood Urea Nitrogen 19 mg/dL (9-20); Calcium 9.2 mg/dL (8.4-10.2); Carbon Dioxide 28 mmol/L (22-30); Chloride 103 mmol/L (98-107); Cholesterol 154 mg/dL (0-200); Estimated Glomerular Filt Rate > 60; Glucose 107 mg/dL (65-110); HDL Direct 49 mg/dL; Potassium 4.6 mmol/L (3.4-5.0); Sodium 140 mmol/L (137-145); Triglycerides 99 mg/dL (<150)
[2021-05-25 09:38] LABS: LDL Cholesterol Direct 79 mg/dL
[2021-05-25 09:40] LABS: Add Urine Microscopic? NO; Appearance Urine Clear (Clear); Bilirubin Urine Negative (Negative); Blood Urine Negative (Negative); Color Urine Yellow (Yellow); Glucose Urine UA Negative (Negative); Ketones Urine Negative (Negative); Leukocyte Esterase Ur Negative LEU/UL (NEGATIVE); Nitrate Urine Negative (Negative); Protein Urine Negative (Negative); Specific Grav Ur 1.019 (1.001-1.035); Urobilinogen Urine Negative mg/dL (<2.0)
[2021-05-25 09:56] LABS: Prostate Specific Antigen 0.8 ng/mL (< OR = 4.0)
== END 2021-05-25 08:49 | disposition home or self-care (01) ==
PROVIDERS: PCP Family Medicine; Visit Provider Family Medicine
DX: I25.10 Atherosclerotic heart disease of native coronary artery without angina pectoris (principal); E78.5 Hyperlipidemia, unspecified; R35.1 Nocturia; Z00.00 Encounter for general adult medical examination without abnormal findings
CPT/HCPCS: 36415; 80053; 80061; 81003; 84153; 84443; 85027

== ENCOUNTER 2021-11-21 09:14 | Outpatient (CLI) | payer BC, SELFPAY ==
[2021-11-21 09:38] LABS: Alanine Aminotransferase 22 U/L (4-50); Albumin Level 4.6 g/dL (3.5-5.1); Alkaline Phosphatase 55 U/L (38-126); Anion Gap 8 mmol/L (8-16); Aspartate Amino Transferase 33 U/L (17-59); Bilirubin,Total 0.9 mg/dL (0.2-1.3); Blood Urea Nitrogen 19 mg/dL (9-20); Calcium 8.9 mg/dL (8.4-10.2); Carbon Dioxide 28 mmol/L (22-30); Chloride 105 mmol/L (98-107); Estimated Glomerular Filt Rate > 60; Glucose 127 mg/dL (65-110); Potassium 4.2 mmol/L (3.4-5.0); Sodium 141 mmol/L (137-145)
== END 2021-11-21 09:15 | disposition home or self-care (01) ==
LOC: ANHLAB 09:16
PROVIDERS: PCP Family Medicine; Visit Provider Family Medicine
DX: I25.10 Atherosclerotic heart disease of native coronary artery without angina pectoris (principal)
CPT/HCPCS: 36415; 80053

== ENCOUNTER 2022-05-06 11:38 | Outpatient (CLI) | payer BC, SELFPAY ==
[2022-05-06 12:31] LABS: Appearance Urine Clear (Clear); Bilirubin Urine Negative (Negative); Blood Urine Negative (Negative); Color Urine Yellow (Yellow); Glucose Urine UA Negative (Negative); Ketones Urine Negative (Negative); Leukocyte Esterase Ur Negative LEU/UL (NEGATIVE); Nitrate Urine Negative (Negative); Protein Urine Negative (Negative); Urobilinogen Urine 0.2 mg/dL (<2.0)
[2022-05-06 12:36] LABS: Basophils Absolute Auto 0.1 K/mm3 (0.0-0.1); Basophils Percent Auto 0.8 % (0.2-1.2); Eosinophils Absolute Auto 0.3 K/mm3 (0-0.3); Eosinophils Percent Auto 4.9 % (0-4.4); Hematocrit 43.4 % (42.0-52.0); Hemoglobin 14.3 g/dL (14.0-18.0); Immature Granulocyte Absolute 0.01 K/mm3 (0.00-0.031); Immature Granulocyte Percent A 0.2 % (0-0.5); Lymphocytes Percent Auto 29.7 % (18.3-44.2); Mean Corpuscular HGB Conc 32.9 g/dl (32-36); Mean Corpuscular Hemoglobin 29.9 pg (26-34); Mean Corpuscular Volume 90.8 fl (80-100); Mean Platelet Volume 8.8 fl (7.4-10.4); Monocytes Absolute Auto 0.6 K/mm3 (0.1-0.6); Monocytes Percent Auto 9.6 % (2.6-8.5); Neutrophils Absolute Auto 3.3 K/mm3 (1.3-6.7); Neutrophils Percent Auto 54.8 % (45.5-73.1); Platelet Count Result 208 k/mm3 (150-375); Red Blood Count 4.78 M/mm3 (4.6-6.20); White Blood Count 6.1 K/mm3 (4.5-10.0)
[2022-05-06 12:49] LABS: Alanine Aminotransferase 25 U/L (6-50); Albumin Level 4.4 g/dL (3.5-5.1); Alkaline Phosphatase 53 U/L (38-126); Anion Gap 8 mmol/L (8-16); Aspartate Amino Transferase 26 U/L (17-59); Bilirubin,Total 0.9 mg/dL (0.2-1.3); Blood Urea Nitrogen 15 mg/dL (9-20); Calcium 8.7 mg/dL (8.4-10.2); Carbon Dioxide 26 mmol/L (22-30); Chloride 102 mmol/L (98-107); Cholesterol 132 mg/dL (0-200); Estimated Glomerular Filt Rate > 60; Glucose 105 mg/dL (65-110); HDL Direct 40 mg/dL; Potassium 4.1 mmol/L (3.4-5.0); Sodium 136 mmol/L (137-145); Triglycerides 152 mg/dL (<150)
[2022-05-06 13:00] LABS: LDL Cholesterol Direct 72 mg/dL
[2022-05-06 13:21] LABS: Prostate Specific Antigen 0.9 ng/mL (< OR = 4.0)
[2022-05-06 13:26] LABS: Add Urine Microscopic? NO
== END 2022-05-06 11:39 | disposition home or self-care (01) ==
PROVIDERS: PCP Family Medicine; Visit Provider Family Medicine
DX: Z12.5 Encounter for screening for malignant neoplasm of prostate (principal); I25.10 Atherosclerotic heart disease of native coronary artery without angina pectoris; R35.1 Nocturia; E78.5 Hyperlipidemia, unspecified; Z00.00 Encounter for general adult medical examination without abnormal findings
CPT/HCPCS: 36415; 80053; 80061; 81003; 84153; 84443; 85025

== ENCOUNTER 2022-05-23 12:14 | Outpatient (CLI) | payer BC, SELFPAY ==
--- NOTE | 2022-05-23 12:25 | ECG_ITS ---
Measurements Intervals [place] Rate: 78 P: 23 WI: 167 QRS: 19 QRSD: 90 T: 20 QT: 374 QTc: 427 Interpretive Statements SINUS RHYTHM NORMAL ECG COMPARED TO ECG 11/08/2020 10:57:56 SINUS RHYTHM NOW PRESENT Electronically Signed On 05-23-2022 15:01:13 CDT by Vivek Iglesias M.D.
== END 2022-05-23 12:15 | disposition home or self-care (01) ==
LOC: ANHSURGERY 12:17
PROVIDERS: PCP Family Medicine; Visit Provider Orthopaedic Surgery
DX: Z01.818 Encounter for other preprocedural examination (principal); Z95.5 Presence of coronary angioplasty implant and graft; M75.101 Unspecified rotator cuff tear or rupture of right shoulder, not specified as traumatic
CPT/HCPCS: 87081; 93005

== ENCOUNTER 2022-05-29 00:11 | Day surgery (SDC) | payer BC, SELFPAY ==
[2022-05-21 12:25] VITALS: BMI 30.8
--- NOTE | 2022-05-21 12:31 | PC.NURSE ---
Report to the Outpatient Waiting Room, entrance under the green pavilion located off [facility], at time 10:00 on date 05/29/22. Planned Procedure Time: 12:00. Time changes happen often and if your time is changed the preop area will call you the afternoon before. - You and your visitor will be asked to self-screen and do not enter if you have any COVID symptoms. - We encourage only one visitor and NO visitors under age 16 are allowed at this time. Your visitor will receive communication by the phone number that is given day of service. - The patient visitor is requested to social distance or may leave the building when not with patient due to restrictions. - A mask is required within the hospital. Patients may have clear liquids (water, carbonated beverages, clear teas, apple juice) until 3 hours prior to surgery (9:00) with a maximum of 20 ounces. - No food from midnight until time of surgery Take the following medications with a SIP of water the morning of surgery: METOPROLOL Medications to discontinue per physician: ASPIRIN Date to take last dose: MAY CONTINUE PER ORDERS Please no make-up, nail micronesian, hairspray, perfume, deodorant, or body powder the day of surgery. No jewelry (including any body piercings) or valuables the day of surgery, leave them at home. Please take a shower or bath the night before, or the morning of, surgery with an antibacterial soap. Wear comfortable, loose fitting clothing. - Jewelry must be removed prior to entering the operating room. Rings and piercings that are not removed may be cut off. - The hospital will not accept responsibility for valuables. - Please leave all valuables, including medications, at home the day of surgery. If you are going home after surgery, a licensed cpr ambulance driver must drive you home. - NO public transportation without another adult. - We recommend that an adult stay with you for 24 hours following discharge. - We also recommend that you do not drive, make important decision, drink alcoholic beverages, or take any drugs that were not prescribed by your health care provider for at least 24 hours after your discharge time. Follow any additional instructions given to you from your surgeon. If you or anyone in your household have experienced Covid symptoms in the past week, please notify your surgeon or the nurse liaison at the phone number below for possible testing. Telephone instructions given to PT - EHSAN GARCIA and asked if any additional questions and then verbalized understanding. Patient advised to call surgeon office or pre surgery nurse liaison [phone] if any additional questions.
--- NOTE | 2022-05-27 12:10 | PM.IMHP ---
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 He has been having symptoms for about a year. He was diagnosed with a medium sized full-thickness rotator cuff tear of the right shoulder in August of this year. He has been trying to just live with the symptoms. However he has been having symptoms on a daily basis mostly pain with use. It is limiting his daily activities. At this point patient feels he would rather proceed with surgery rather than continuing nonsurgical treatment for the shoulder. Review of Systems Review of Systems: All systems reviewed & are unremarkable except as noted in HPI and below PMFSH Past Medical History Medical History (Updated 05/28/22 @ 14:23 by Serge Francis MD) Afib Atrial fibrillation with RVR CAD (coronary artery disease) Hyperlipidemia Left shoulder pain Obesity ST elevation (STEMI) myocardial infarction Ventricular arrhythmia Surgical History Surgical History History of hip replacement History of tonsillectomy S/P coronary artery stent placement Family History Family History Father Heart disease Social History Social History Smoking status: Never smoker Second hand tobacco smoke exposure: No Alcohol intake: current Drinks per week: 2 Substance use: never Substance use type: does not use Living arrangements: with family Gender identity (if verbalized by the patient): Male Sexual Orientation (if Verbalized by the Patient): Straight or Heterosexual Spiritual care concerns: No Meds Home Medications and Allergies Home Medications Medication Instructions Recorded Confirmed Type aspirin 81 mg chewable tablet 81 mg PO DAILY@0800 #30 tabs 11/10/20 05/21/22 Rx (Children's Aspirin) lisinopril 2.5 mg tablet 2.5 mg PO DAILY #30 tabs 11/10/20 05/21/22 Rx metoprolol succinate 25 mg 25 mg PO QAM #30 tabs 11/10/20 05/29/22 Rx tablet,extended release 24 hr (Toprol XL) nitroglycerin 0.4 mg sublingual 0.4 mg sublingual Q5MIN PRN Chest 11/10/20 05/21/22 Rx tablet (Nitrostat) Pain #30 tabs rosuvastatin 10 mg tablet (Crestor) 10 mg PO DAILY #30 tabs 11/10/20 05/21/22 Rx sildenafil 25 mg tablet (Viagra) 25 mg PO DAILY PRN sexual activity 01/31/21 05/21/22 Rx #30 tabs Allergies Allergy/AdvReac Type Severity Reaction Status Date / Time No Known Allergies Allergy Verified 05/29/22 11:23 Exam Narrative: 57-year-old male alert pleasant. He is 5 ft 9 and 216 lb. His right shoulder he elevates to 140, externally rotates to 80 internally rotates to T12. He has normal strength with external rotation and normal belly press strength. Mild weakness with abduction testing associated with pain. Moderate pain with primary impingement testing. Neck range of motion is full without discomfort negative Spurling's maneuver. 2+ radial pulse. Mild tenderness over the anterior supraspinatus tendon insertion. No AC joint tenderness. Resp: Auscultation: clear to auscultation bilaterally Cardio: Rate: regular rate Rhythm: regular rhythm Assessment and Plan Assessment and plan (1) Right shoulder pain: Code(s): M25.511 - Pain in right shoulder Status: Acute Assessment and Plan: 57-year-old male who has a medium-sized full-thickness rotator cuff tear right shoulder with continued symptoms. Again has been trying to live with this for last 8-9 months without improvement of his symptoms. He feels at this point rather proceed with surgical repair of the rotator cuff tendon. Surgical procedure as well as the risks and complications were discussed in detail all questions were a
--- NOTE | 2022-05-28 14:22 | WPDANESEPPF ---
Anes - Initial Pre Proc Eval Procedure: Operation Date: 05/29/22 12:00 Proposed Procedures p Right Shoulder Arthroscopy, Mini Open Rotator Cuff Repair, Proceed As Indicated - Kun Dasilva MD Date/Time: 05/28/22 14:22 Surgeon: Kun Dasilva MD Pre Op Diagnosis: right shoulder rotator cuff tear Patient Data Age: 57 Gender: M Height: 1.78 m Weight: 97.52 kg Allergies Allergy/AdvReac Type Severity Reaction Status Date / Time No Known Allergies Allergy Unverified 05/21/22 12:23 Home Medications Medication Instructions Recorded Confirmed Type aspirin 81 mg chewable tablet 81 mg PO DAILY@0800 #30 tabs 11/10/20 05/21/22 Rx (Children's Aspirin) lisinopril 2.5 mg tablet 2.5 mg PO DAILY #30 tabs 11/10/20 05/21/22 Rx metoprolol succinate 25 mg 25 mg PO QAM #30 tabs 11/10/20 05/21/22 Rx tablet,extended release 24 hr (Toprol XL) nitroglycerin 0.4 mg sublingual 0.4 mg sublingual Q5MIN PRN Chest 11/10/20 05/21/22 Rx tablet (Nitrostat) Pain #30 tabs rosuvastatin 10 mg tablet (Crestor) 10 mg PO DAILY #30 tabs 11/10/20 05/21/22 Rx sildenafil 25 mg tablet (Viagra) 25 mg PO DAILY PRN sexual activity 01/31/21 05/21/22 Rx #30 tabs ECG: Date of Service: 05/23/22 Procedure(s): CA 12 lead EKG Accession Number(s): [id number] cc: ~ ? Measurements Intervals? [place]? Rate: ? 78 ? P:? 23 TN: ? 167? QRS:? 19 QRSD: ? 90 ? T:? 20 QT: ? 374? QTc:? 427? Interpretive Statements SINUS RHYTHM NORMAL ECG COMPARED TO ECG 11/08/2020 10:57:56 SINUS RHYTHM NOW PRESENT Electronically Signed On 05-23-2022 15:01:13 CDT by Vivek Iglesias M.D. Patient hx anesthesia problems: none Family hx anesthesia problems: none Results Review: All pre-operative results and documents have been reviewed as part of the pre-operative evaluation. [facility] Past Medical History Medical History (Updated 05/28/22 @ 14:23 by Serge Francis MD) Afib Atrial fibrillation with RVR CAD (coronary artery disease) Hyperlipidemia Left shoulder pain Obesity ST elevation (STEMI) myocardial infarction Ventricular arrhythmia Surgical History Surgical History History of hip replacement History of tonsillectomy S/P coronary artery stent placement Family History Family History Father Heart disease Social History Social History Smoking status: Never smoker Second hand tobacco smoke exposure: No Alcohol intake: current Drinks per week: 2 Substance use: never Substance use type: does not use Living arrangements: with family Gender identity (if verbalized by the patient): Male Sexual Orientation (if Verbalized by the Patient): Straight or Heterosexual Spiritual care concerns: No Anes - Eval Final PreProcedure Day of Procedure 05/28/22 14:22 Patient weight: obese Heart: regular rate and rhythm Lungs: clear to auscultation and normal air movement Airway: Mallampati scale class II Neurological: alert and oriented Last oral intake: >/= 8 hours ASA classification: III Emergent: no Anesthetic plan: proceed Anesthesia type and monitoring: general ETT Results Review: All pre-operative results and documents have been reviewed as part of the pre-operative evaluation. Informed Consent: The patient's anesthetic plan and its attendant risks and benefits were discussed with the patient/family/POA. Questions were solicited and answers provided to the satisfaction of the patient/family/POA.
--- NOTE | 2022-05-28 14:24 | WPDANESPNB ---
Anes - Peripheral Nerve Block Date/Time: 05/28/22 14:24 I have discussed with the patient/family/POA the placement of a peripheral nerve block for post-operative pain management, including associated risks, benefits, complications, and side effects. Alternative methods of post-operative analgesia were detailed. Questions were solicited and answers provided to the satisfaction of the patient/family/POA. Time-Out: A pre-procedural Time-Out was completed immediately before starting the procedure and confirmed: Patient Identification, Site, Procedure, Patient Position and the Availability of Requisite Equipment. Clinical Indications: Acute post-operative pain management requested by the operative surgeon. Nerve Block Insertion Note Anes-nerve block: supraclavicular right Patient position: supine Skin prep: chlorhexidine Needle: 22 gauge, stimulating, insulated echogenic needle. Needle length: 80 mm Technique: ultrasound (in plane) Injectate: bupivacaine 0.25% with epi 5 mcg/ml (20cc) Observations: tolerated well Complications: none Procedure start time:: 1155 Procedure end time:: 1200
[2022-05-29] VITALS (10 sets, daily range): BP systolic 98–118; BP diastolic 53–76; PULSE 59–78; RESP 12–18; TEMP 36.2–36.6; O2SAT 94–100
[2022-05-29] MEDS: LACTATED RINGERS 1,000 ML 30 ML IV CONT (11:00)
[2022-05-29] MEDS: ACETAMINOPHEN 500 MG TABLET 1000 MG PO (11:15)
[2022-05-29] MEDS: KETOROLAC 15 MG/ML VIAL (*BKC) IV PUSH (11:15)
[2022-05-29] MEDS: ceFAZolin 2 GM/D5W 50 ML 2 GM/50 ML BAG IVPB (12:09)
[2022-05-29] MEDS: ceFAZolin SODIUM 1 GM VIAL (13:10)
--- NOTE | 2022-05-29 15:32 | W.PM.PROC2 ---
Procedure Note - Detailed Date of Procedure 05/29/22 Pre-op Diagnosis right shoulder rotator cuff tear Post-op Diagnosis Same (And high-grade maceration intra-articular portion of long head of biceps tendon) Procedure Performed Arthroscopic subacromial debridement, mini open rotator cuff repair and biceps tenodesis with keyhole technique in the bicipital groove Surgeon Kun Dasilva MD Plumber [employer] Tinner Katia Description of Procedure Patient was brought to the operating room and general anesthesia was administered. He was placed in the beach chair position the left arm carefully position the head position in neutral alignment and the right shoulder prepped draped usual fashion. Posterior portal was placed. Was intact labrum minimal chondromalacia of superior humeral head and central glenoid. Severe maceration and fraying of the intra-articular long head of the biceps. This extended into the upper bicipital groove on probing. The arthroscope was placed in the subacromial space and the rotator cuff tear visualized. It was mildly retracted. Involve supraspinatus and infraspinatus tendons. I would estimate it was 24 mm anterior to posterior a larger medium-sized tear. There was fraying of the coracoacromial ligament from the undersurface of the acromion. I did not feel that acromioplasty was indicated. The fraying was debrided conservatively as was some of the synovitis in the subacromial space. The remaining skin was covered with Ioban and outer gloves were changed. A 4 cm incision was made starting 1 cm proximal to the anterior edge of the acromion of the anterolateral shoulder over the deltoid tendinous raphe between anterior and middle heads. The deltoid was incised in the Dusty a and a split totaling 4 cm in length was made. Bursal layer was incised and this brought us down onto the rotator cuff tear. The edge of the tendon was in fairly good condition considering its chronicity. Was adequate thickness. We proceeded with the biceps tenodesis. The fascia over the bicipital groove was incised and we placed a tag stitch on the long head of the biceps where we expected it to come out of the keyhole. We then released the long head from the superior glenoid labrum under arthroscopic visualization and debrided the stump with shaver and ArthroCare. The intra-articular portion of the tendon was rolled up into a ball that was made tight with numerous passages of 2. FiberWire a corresponding bur hole approximately 1 cm in diameter was made in the upper aspect of the bicipital groove and then a slot 2.5 mm in diameter and 8 mm long was made in the lower portion the bicipital groove. The ball of long head of biceps was inserted into the keyhole and the tendon fell into the slot nicely with the bald portion locked behind it. Security was confirmed. The aponeurosis over the bicipital groove was repaired with 0 Ethibond. We then approached the rotator cuff tone. The tear did involve the anterior cable of supraspinatus. Only the rotator cuff interval remained attached to the anterior aspect of the greater tuberosity. We 1st anchored the rotator cuff anterior cable securely and then proceeded to repair the remaining rotator cuff tear. We had prepared the tuberosity by scraping all the residual soft tissue off the tuberosity footprint including underneath the lower portions of the infraspinatus which had articular sided partial-thickness tearing and use 2 mm bur to make multiple bur holes adjacent to the articular surface for passage of sutures and 1 mm dimples to enhance bleeding of the greater tuberosity. We then repaired the tendon using simple sutures through bone tunnels. Our 1st 2 sutures were the 1.4 mm suture tape by [place] 1 in the infraspinatus 1 in the supraspinatus and then we reconfirmed that the placement of the 10 was appropriate with no dog ears and full range of motion we proceeded to place multiple 2. Ethibond using a converging pattern to create a spher
[2022-05-29] MEDS: ONDANSETRON INJ 4 MG/2 ML VIAL IV PUSH (16:55)
--- NOTE | 2022-05-29 18:35 | SUR.PHASEII ---
pt IV left in right before discharge due to intermittent nausea. IV was inadvertently left in when pt left the hospital. This nurse called the patient to come in and get the IV removed. pt refused and said he was already home and his profile saw operator brother can take it out. This nurse instructed pt on how to remove IV with tape and slide the catheter straight out and place direct pressure with gauze for 15 minutes.
== END 2022-05-29 18:10 | disposition home or self-care (01) ==
PROVIDERS: PCP Family Medicine; Visit Provider Orthopaedic Surgery
PROC: (CPT 29805; principal; 2022-05-29 12:00)
DX: M75.101 Unspecified rotator cuff tear or rupture of right shoulder, not specified as traumatic (principal); G89.18 Other acute postprocedural pain; I48.91 Unspecified atrial fibrillation; I25.10 Atherosclerotic heart disease of native coronary artery without angina pectoris; I25.2 Old myocardial infarction; E78.5 Hyperlipidemia, unspecified; E66.9 Obesity, unspecified; Z68.30 Body mass index [BMI] 30.0-30.9, adult; Z79.82 Long term (current) use of aspirin; Z95.5 Presence of coronary angioplasty implant and graft
CPT/HCPCS: 29822; 23412; 23430; 64415; A4565; A9270; J0690; J1100; J1885; J2250; J2405; J2704; J2710; J3010; J3370; J7120

== ENCOUNTER 2022-11-15 08:31 | Outpatient (CLI) | payer BC, SELFPAY ==
[2022-11-15 09:06] LABS: Alanine Aminotransferase 29 U/L (6-50); Albumin Level 4.3 g/dL (3.5-5.1); Alkaline Phosphatase 57 U/L (38-126); Anion Gap 8 mmol/L (8-16); Aspartate Amino Transferase 26 U/L (17-59); Bilirubin,Total 1.1 mg/dL (0.2-1.3); Blood Urea Nitrogen 19 mg/dL (9-20); Calcium 8.5 mg/dL (8.4-10.2); Carbon Dioxide 28 mmol/L (22-30); Chloride 102 mmol/L (98-107); Estimated Glomerular Filt Rate > 60; Glucose 106 mg/dL (65-110); Potassium 4.1 mmol/L (3.4-5.0); Sodium 138 mmol/L (137-145)
== END 2022-11-15 08:32 | disposition home or self-care (01) ==
LOC: ANHLAB 08:33
PROVIDERS: PCP Family Medicine; Visit Provider Family Medicine
DX: I25.10 Atherosclerotic heart disease of native coronary artery without angina pectoris (principal); E78.5 Hyperlipidemia, unspecified
CPT/HCPCS: 36415; 80053

== ENCOUNTER 2023-05-08 10:17 | Outpatient (CLI) | payer BC, SELFPAY ==
[2023-05-08 10:45] LABS: Hematocrit 45.3 % (42.0-52.0); Hemoglobin 14.7 g/dL (14.0-18.0); Mean Corpuscular HGB Conc 32.5 g/dl (32-36); Mean Corpuscular Hemoglobin 29.8 pg (26-34); Mean Corpuscular Volume 91.9 fl (80-100); Mean Platelet Volume 8.9 fl (7.4-10.4); Platelet Count Result 233 k/mm3 (150-375); Red Blood Count 4.93 M/mm3 (4.6-6.20); Red Cell Distribution Width 12.8 % (11.5-14.5); White Blood Count 6.2 K/mm3 (4.5-10.0)
[2023-05-08 10:56] LABS: Alanine Aminotransferase 30 U/L (6-50); Albumin Level 4.4 g/dL (3.5-5.1); Alkaline Phosphatase 53 U/L (38-126); Anion Gap 5 mmol/L (8-16); Aspartate Amino Transferase 32 U/L (17-59); Bilirubin,Total 0.8 mg/dL (0.2-1.3); Blood Urea Nitrogen 15 mg/dL (9-20); Calcium 8.5 mg/dL (8.4-10.2); Carbon Dioxide 28 mmol/L (22-30); Chloride 103 mmol/L (98-107); Cholesterol 149 mg/dL (0-200); Estimated Glomerular Filt Rate > 60; Glucose 102 mg/dL (65-110); HDL Direct 46 mg/dL; Sodium 136 mmol/L (137-145); Triglycerides 86 mg/dL (<150)
[2023-05-08 11:07] LABS: LDL Cholesterol Direct 91 mg/dL
[2023-05-08 11:27] LABS: Prostate Specific Antigen 0.9 ng/mL (< OR = 4.0)
[2023-05-08 11:35] LABS: Appearance Urine Clear (Clear); Bilirubin Urine Negative (Negative); Blood Urine Negative (Negative); Color Urine Yellow (Yellow); Glucose Urine UA Negative (Negative); Ketones Urine Negative (Negative); Leukocyte Esterase Ur Negative LEU/UL (NEGATIVE); Nitrate Urine Negative (Negative); Protein Urine Negative (Negative); Specific Grav Ur 1.015 (1.001-1.035); Urobilinogen Urine 0.2 mg/dL (<2.0); pH Urine 5.5 (5.0-9.0)
[2023-05-08 11:43] LABS: Add Urine Microscopic? NO
== END 2023-05-08 10:18 | disposition home or self-care (01) ==
LOC: ANHLAB 10:18
PROVIDERS: PCP Family Medicine; Visit Provider Physician Assistant
DX: Z00.00 Encounter for general adult medical examination without abnormal findings (principal); Z12.5 Encounter for screening for malignant neoplasm of prostate; I25.10 Atherosclerotic heart disease of native coronary artery without angina pectoris; I48.91 Unspecified atrial fibrillation
CPT/HCPCS: 36415; 80053; 80061; 81003; 84153; 84443; 85027; G0103

== ENCOUNTER 2023-09-12 00:31 | Day surgery (SDC) | payer BC, SELFPAY ==
[2023-08-20 13:29] VITALS: BMI 31.6
--- NOTE | 2023-09-10 11:38 | SUR.PREOP ---
Patient called regarding upcoming procedure. Voicemail left regarding appointment times.
[2023-09-12 07:59] VITALS: BP 130/70; PULSE 80; RESP 20; TEMP 35.9; O2SAT 98; BMI 31.5
[2023-09-12] MEDS: LACTATED RINGERS 1,000 ML 150 ML IV CONT (08:13)
--- NOTE | 2023-09-12 08:34 | PM.HPGS ---
History of Present Illness History of Present Illness Consent: Risks, benefits, and alternatives have been discussed and questions answered. Patient agrees to proceed with procedure. Chief complaint: Hx colon polyps Narrative: Bartolo Connolly is a 58 year old male with colon polyp in 2018 Review of Systems Constitutional: Constitutional: Denies headache(s) and Denies weakness Eyes: Eyes: Denies blurry vision ENT: Reports Normal hearing present, Denies headache(s) and Denies neck pain Cardiovascular: Cardiovascular: Denies chest pain and Denies dyspnea Respiratory: Respiratory: Denies dyspnea Gastrointestinal: Gastrointestinal: Reports no additional gastrointestinal complaints Genitourinary: Genitourinary: Denies dysuria Musculoskeletal: Musculoskeletal: Denies neck pain Integumentary/Breasts: Skin/Breast: Denies dry skin Neurologic: Reports Normal hearing present, Denies headache(s) and Denies weakness Psychiatric: Psychiatric: Denies anxiety Endocrine: Endocrine: Denies change in body appearance Hematologic/Lymphatic: Hematologic/Lymphatic: Denies easy bleeding Allergic/Immunologic: Allergic/Immunologic: Denies urticaria PMFSH Past Medical History Medical History (Updated 09/12/23 @ 08:34 by Lars Villalpando MD) Afib Atrial fibrillation with RVR CAD (coronary artery disease) Colon polyp Hyperlipidemia Left shoulder pain Obesity ST elevation (STEMI) myocardial infarction Ventricular arrhythmia Surgical History Surgical History History of hip replacement History of rotator cuff surgery R History of tonsillectomy S/P coronary artery stent placement Family History Family History Father Heart disease Social History Social History Smoking status: Never smoker Second hand tobacco smoke exposure: No Alcohol intake: current Drinks per week: 1 Substance use: never Substance use type: does not use Living arrangements: with family Occupation/Education: occupation Gender identity (if verbalized by the patient): Male Sexual Orientation (if Verbalized by the Patient): Straight or Heterosexual Spiritual care concerns: No Meds Home Medications and Allergies Home Medications Medication Instructions Recorded Confirmed Type aspirin 81 mg chewable tablet 81 mg PO DAILY@0800 #30 tabs 11/10/20 08/20/23 Rx (Children's Aspirin) lisinopril 2.5 mg tablet 2.5 mg PO DAILY #30 tabs 11/10/20 08/20/23 Rx metoprolol succinate 25 mg 25 mg PO QAM #30 tabs 11/10/20 08/20/23 Rx tablet,extended release 24 hr (Toprol XL) nitroglycerin 0.4 mg sublingual 0.4 mg sublingual Q5MIN PRN Chest 11/10/20 08/20/23 Rx tablet (Nitrostat) Pain #30 tabs rosuvastatin 10 mg tablet (Crestor) 10 mg PO DAILY #30 tabs 11/10/20 08/20/23 Rx acetaminophen 325 mg tablet 650 mg PO Q4H PRN pain #120 tabs 05/29/22 08/20/23 Rx Allergies Allergy/AdvReac Type Severity Reaction Status Date / Time No Known Allergies Allergy Verified 09/12/23 07:58 Vital Signs Vital Signs - 24 hr 09/12/23 07:59 Temperature 96.7 F L Pulse Rate 80 Respiratory Rate 20 Blood Pressure 130/70 Pulse Oximetry 98 Oxygen Delivery Room Air Exam Const: General: comfortable and no acute distress HENMT: Face/Nose/Sinus: Normal nares present Eyes: General: appearance normal, both eyes and all related structures Neck: Neck: no JVD Resp: Auscultation: clear to auscultation bilaterally Cardio: Rate: regular rate Rhythm: regular rhythm GI: Inspection: non-distended GI Palp: Yes Soft to palpation Skin: General skin exam: normal color Neuro: General: gait normal Speech: normal speech Extrem: General: normal to inspection Psych: Mental Status: mental status grossly normal Assessment and Plan Assessment and plan (1) Co
--- NOTE | 2023-09-12 08:35 | WPDANESEPPF ---
Anes - Initial Pre Proc Eval Procedure: Operation Date: 09/12/23 09:00 Proposed Procedures p Colonoscopy - Lars Villalpando MD Date/Time: 09/12/23 08:35 Surgeon: Lars Villalpando MD Pre Op Diagnosis: Hx colon polyps Patient Data Age: 58 Gender: M Height: 1.78 m Weight: 99.6 kg Last Vital Signs Temp 96.7 F L 09/12/23 07:59 Pulse 80 09/12/23 07:59 Resp 20 09/12/23 07:59 BP 130/70 09/12/23 07:59 Pulse Ox 98 09/12/23 07:59 O2 Del Method Room Air 09/12/23 07:59 Allergies Allergy/AdvReac Type Severity Reaction Status Date / Time No Known Allergies Allergy Verified 09/12/23 07:58 Home Medications Medication Instructions Recorded Confirmed Type aspirin 81 mg chewable tablet 81 mg PO DAILY@0800 #30 tabs 11/10/20 08/20/23 Rx (Children's Aspirin) lisinopril 2.5 mg tablet 2.5 mg PO DAILY #30 tabs 11/10/20 08/20/23 Rx metoprolol succinate 25 mg 25 mg PO QAM #30 tabs 11/10/20 08/20/23 Rx tablet,extended release 24 hr (Toprol XL) nitroglycerin 0.4 mg sublingual 0.4 mg sublingual Q5MIN PRN Chest 11/10/20 08/20/23 Rx tablet (Nitrostat) Pain #30 tabs rosuvastatin 10 mg tablet (Crestor) 10 mg PO DAILY #30 tabs 11/10/20 08/20/23 Rx acetaminophen 325 mg tablet 650 mg PO Q4H PRN pain #120 tabs 05/29/22 08/20/23 Rx Patient hx anesthesia problems: none Family hx anesthesia problems: none Results Review: All pre-operative results and documents have been reviewed as part of the pre-operative evaluation. [facility] Past Medical History Medical History (Updated 09/12/23 @ 08:34 by Lars Villalpando MD) Afib Atrial fibrillation with RVR CAD (coronary artery disease) Colon polyp Hyperlipidemia Left shoulder pain Obesity ST elevation (STEMI) myocardial infarction Ventricular arrhythmia Surgical History Surgical History History of hip replacement History of rotator cuff surgery R History of tonsillectomy S/P coronary artery stent placement Family History Family History Father Heart disease Social History Social History Smoking status: Never smoker Second hand tobacco smoke exposure: No Alcohol intake: current Drinks per week: 1 Substance use: never Substance use type: does not use Living arrangements: with family Occupation/Education: occupation Gender identity (if verbalized by the patient): Male Sexual Orientation (if Verbalized by the Patient): Straight or Heterosexual Spiritual care concerns: No Anes - Eval Final PreProcedure Day of Procedure 09/12/23 08:35 Patient weight: obese Heart: regular rate and rhythm Lungs: clear to auscultation Airway: Mallampati scale class II Neurological: alert and oriented Last oral intake: >/= 8 hours ASA classification: III Emergent: no Anesthetic plan: proceed Anesthesia type and monitoring: general GIVS and standard monitoring Results Review: All pre-operative results and documents have been reviewed as part of the pre-operative evaluation. Informed Consent: The patient's anesthetic plan and its attendant risks and benefits were discussed with the patient/family/POA. Questions were solicited and answers provided to the satisfaction of the patient/family/POA.
[2023-09-12 08:55] VITALS: BP 103/67; PULSE 68; RESP 17; O2SAT 95
[2023-09-12 09:05] VITALS: BP 101/69; PULSE 64; RESP 17; O2SAT 96
[2023-09-12 09:15] VITALS: BP 112/74; PULSE 70; RESP 20; O2SAT 99
== END 2023-09-12 09:28 | disposition home or self-care (01) ==
PROVIDERS: PCP Family Medicine; Visit Provider Internal Medicine Gastroenterology
PROC: 0DJD8ZZ Inspection of Lower Intestinal Tract, Via Natural or Artificial Opening Endoscopic (ICD-10-PCS; CPT 45378; principal; 2023-09-12 09:00)
DX: Z12.11 Encounter for screening for malignant neoplasm of colon (principal); K64.8 Other hemorrhoids; Z86.010 Personal history of colon polyps; I48.91 Unspecified atrial fibrillation; I25.10 Atherosclerotic heart disease of native coronary artery without angina pectoris; E78.5 Hyperlipidemia, unspecified; I25.2 Old myocardial infarction; E66.9 Obesity, unspecified; Z68.31 Body mass index [BMI] 31.0-31.9, adult; Z79.82 Long term (current) use of aspirin
CPT/HCPCS: 45378; J2704; J7120

== ENCOUNTER 2023-11-28 13:59 | Outpatient (CLI) | payer BC, SELFPAY ==
[2023-11-28 14:54] LABS: Alanine Aminotransferase 31 U/L (6-50); Albumin Level 4.5 g/dL (3.5-5.1); Alkaline Phosphatase 53 U/L (38-126); Anion Gap 9 mmol/L (4-12); Aspartate Amino Transferase 30 U/L (17-59); Bilirubin,Total 0.7 mg/dL (0.2-1.3); Blood Urea Nitrogen 15 mg/dL (9-20); Carbon Dioxide 25 mmol/L (22-30); Chloride 105 mmol/L (98-107); Estimated Glomerular Filt Rate > 60; Glucose 100 mg/dL (65-110); Sodium 139 mmol/L (137-145)
== END 2023-11-28 14:00 | disposition home or self-care (01) ==
LOC: ANHLAB 14:00
PROVIDERS: PCP Family Medicine; Visit Provider Family Medicine
DX: I25.10 Atherosclerotic heart disease of native coronary artery without angina pectoris (principal)
CPT/HCPCS: 36415; 80053

== ENCOUNTER 2024-05-19 11:09 | Outpatient (CLI) | payer BC, SELFPAY ==
[2024-05-19 11:40] LABS: Hematocrit 46.1 % (42.0-52.0); Hemoglobin 15.1 g/dL (14.0-18.0); Mean Corpuscular HGB Conc 32.8 g/dl (32-36); Mean Corpuscular Hemoglobin 30.1 pg (26-34); Mean Corpuscular Volume 91.8 fl (80-100); Mean Platelet Volume 8.6 fl (7.4-10.4); Platelet Count Result 243 k/mm3 (150-375); Red Blood Count 5.02 M/mm3 (4.6-6.20); Red Cell Distribution Width 13.1 % (11.5-14.5); White Blood Count 6.4 K/mm3 (4.5-10.0)
[2024-05-19 11:42] LABS: Add Urine Microscopic? NO; Appearance Urine Clear (Clear); Bilirubin Urine Negative (Negative); Blood Urine Negative (Negative); Color Urine Yellow (Yellow); Glucose Urine UA Negative (Negative); Ketones Urine Negative (Negative); Leukocyte Esterase Ur Negative LEU/UL (Negative); Nitrate Urine Negative (Negative); Protein Urine Negative (Negative); Urobilinogen Urine 0.2 mg/dL (<2.0); pH Urine 7.5 (5.0-9.0)
[2024-05-19 12:01] LABS: Alanine Aminotransferase 28 U/L (6-50); Albumin Level 4.7 g/dL (3.5-5.1); Alkaline Phosphatase 55 U/L (38-126); Anion Gap 9 mmol/L (4-12); Aspartate Amino Transferase 29 U/L (17-59); Bilirubin,Total 1.4 mg/dL (0.2-1.3); Blood Urea Nitrogen 15 mg/dL (9-20); Calcium 9.2 mg/dL (8.4-10.2); Carbon Dioxide 28 mmol/L (22-30); Chloride 101 mmol/L (98-107); Cholesterol 133 mg/dL (0-200); Estimated Glomerular Filt Rate > 60; Glucose 109 mg/dL (65-110); HDL Direct 42 mg/dL; Potassium 4.4 mmol/L (3.4-5.0); Sodium 138 mmol/L (137-145); Triglycerides 106 mg/dL (<150)
[2024-05-19 12:12] LABS: LDL Cholesterol Direct 64 mg/dL
[2024-05-19 12:29] LABS: Prostate Specific Antigen 0.9 ng/mL (< OR = 4.0)
== END 2024-05-19 11:10 | disposition home or self-care (01) ==
PROVIDERS: PCP Family Medicine; Visit Provider Family Medicine
DX: Z00.00 Encounter for general adult medical examination without abnormal findings (principal); I25.10 Atherosclerotic heart disease of native coronary artery without angina pectoris; E78.5 Hyperlipidemia, unspecified; R35.1 Nocturia
CPT/HCPCS: 36415; 80053; 80061; 81003; 84153; 84443; 85027

== ENCOUNTER 2024-06-30 14:14 | Outpatient (CLI) | payer BC, SELFPAY ==
--- NOTE | ~2024-06-30 | MR_ITS ---
EXAMINATION: MR knee RT wo con DATE: 06/30/2024 14:53 INDICATION: Right knee pain with primary osteoarthritis TECHNIQUE: Magnetic resonance imaging (MRI) of the right knee was performed without intravenous contr ast. Sequences included coronal PD-weighted FSE, coronal PD-weighted FS FSE, sagittal T2-weighted FS E, sagittal PD-weighted FS FSE and axial PD weighted fat saturated FSE. COMPARISON: None. FINDINGS: Medial compartment: Complex tear of the body and posterior horn of the medial meniscus with macerated appearance and decr eased size of the meniscus at the junction of the body and posterior horn suggesting loss or displace ment of meniscal tissue. Partial-thickness chondral ulceration and fissuring involving up to 50% of t he cartilage thickness but without degenerative subchondral changes along the anterior to central daphnie ghtbearing medial femoral condyle. There is partial thickness cartilage loss with minimal chondral azul rface regularity along the posterior and medial aspect of the medial tibial plateau. There is promine nt marrow edema along the medial tibial plateau including along the margins of a subtle curvilinear l ow signal intensity subarticular likely stress fracture line at the anteromedial aspect of the medial tibial plateau which likely results from altered stresses distribution resulting from the meniscal t ear. Lateral compartment: Lateral meniscus is normal. Shallow chondral surface regularity along the anterior weightbearing late ral femoral condyle. Normal cartilage along the lateral tibial plateau. Patellofemoral compartment: Full and near full-thickness chondral ulceration with underlying cortical irregularity and mild subar ticular edema-like signal change at the patellar apical ridge a large portion of the lateral patellar facet and small portion of the lateral side of the medial patellar facet. Additional deep chondral u lceration and additional cortical irregularity and subcortical edema-like signal change involving sig nificant portion of the lateral trochlea and the inferior aspect of the trochlear groove and medial t rochlea. Ligaments and tendons: Anterior and posterior cruciate ligaments are normal. The medial collateral ligament and fibular hugo ateral ligament complex are normal. Mild distal quadriceps tendinopathy without tear. Patellar tendon is normal. Mild tendinopathy without tear at the distal semimembranosus tendon. The visualized media l and lateral hamstring tendons as well as the iliotibial band are otherwise normal. Fluid: Small joint effusion at the recess of the suprapatellar recess. No loose osteochondral bodies identif ied. Osseous/other: Bone alignment is normal. Low signal intensity bone island at the medial femoral condyle. No other fr actures or pathologic marrow replacing process. IMPRESSION: 1. Complex medial meniscal tear with small nondepressed subarticular stress fracture at the medial ti bial plateau likely related to altered stress distribution resulting from the meniscal tear. 2. Tricompartmental osteoarthritis, severe with extensive high-grade chondral malacia in the patellof emoral compartment and mild with regions of moderate grade chondromalacia in the medial and to lesser degree lateral compartments. 3. Mild distal quadriceps and distal semimembranosus tendinopathy without tears. Reviewed, dictated and finalized at location A. EAR ENGINEER IMPRESSION: 1. Complex medial meniscal tear with small nondepressed subarticular stress fra cture at the medial tibial plateau likely related to altered stress distributio n resulting from the meniscal tear. 2. Tricompartmental osteoarthritis, severe with extensive high-grade chondral m alacia in the patellofemoral compartment and mild with regions of moderate grad e chondromalacia in the medial and to lesser degree lateral compartments. 3. Mild distal quadriceps and distal semimembranosus tendinopathy without tears .
== END 2024-06-30 14:15 | disposition home or self-care (01) ==
LOC: GOSHIMG 14:16
PROVIDERS: PCP Physician Assistant Surgical; Visit Provider Physician Assistant Surgical
DX: S83.231A Complex tear of medial meniscus, current injury, right knee, initial encounter (principal); M84.361A Stress fracture, right tibia, initial encounter for fracture; M94.261 Chondromalacia, right knee; M77.8 Other enthesopathies, not elsewhere classified; M17.11 Unilateral primary osteoarthritis, right knee
CPT/HCPCS: 73721

== ENCOUNTER 2024-08-26 10:16 | Outpatient (CLI) | payer BC, SELFPAY ==
[2024-08-26 10:51] LABS: Basophils Percent Auto 0.1 % (0.2-1.2); Eosinophils Percent Auto 0.1 % (0-4.4); Hemoglobin 14.8 g/dL (14.0-18.0); Immature Granulocyte Absolute 0.04 K/mm3 (0.00-0.031); Immature Granulocyte Percent A 0.4 % (0-0.5); Lymphocytes Absolute Auto 1.46 K/mm3 (0.9-3.2); Lymphocytes Percent Auto 14.1 % (18.3-44.2); Mean Corpuscular HGB Conc 32.2 g/dl (32-36); Mean Corpuscular Hemoglobin 28.7 pg (26-34); Mean Corpuscular Volume 89.1 fl (80-100); Mean Platelet Volume 8.9 fl (7.4-10.4); Monocytes Absolute Auto 0.7 K/mm3 (0.1-0.6); Monocytes Percent Auto 6.7 % (2.6-8.5); Neutrophils Absolute Auto 8.1 K/mm3 (1.3-6.7); Neutrophils Percent Auto 78.6 % (45.5-73.1); Platelet Count Result 256 k/mm3 (150-375); Red Blood Count 5.16 M/mm3 (4.6-6.20); Red Cell Distribution Width 12.8 % (11.5-14.5); White Blood Count 10.4 K/mm3 (4.5-10.0)
[2024-08-26 10:59] LABS: Alanine Aminotransferase 32 U/L (6-50); Albumin Level 4.7 g/dL (3.5-5.1); Alkaline Phosphatase 50 U/L (38-126); Anion Gap 12 mmol/L (4-12); Aspartate Amino Transferase 29 U/L (17-59); Bilirubin,Total 1.7 mg/dL (0.2-1.3); Blood Urea Nitrogen 23 mg/dL (9-20); Calcium 8.8 mg/dL (8.4-10.2); Carbon Dioxide 23 mmol/L (22-30); Chloride 103 mmol/L (98-107); Estimated Glomerular Filt Rate > 60; Glucose 102 mg/dL (65-110); Potassium 4.1 mmol/L (3.4-5.0); Sodium 138 mmol/L (137-145)
== END 2024-08-26 10:17 | disposition home or self-care (01) ==
LOC: ANHLAB 10:18
PROVIDERS: PCP Family Medicine; Visit Provider Orthopaedic Surgery
DX: M17.11 Unilateral primary osteoarthritis, right knee (principal); Z79.1 Long term (current) use of non-steroidal anti-inflammatories (NSAID)
CPT/HCPCS: 36415; 80053; 85025

== ENCOUNTER 2024-10-29 14:52 | Outpatient (CLI) | payer BC, SELFPAY ==
--- OUTSIDE RECORDS SUMMARY | 2024-10-29 14:57 | XMS_ITS | Clinical Summary ---
Author Organization [facility] Address [address] [place] [address] Care Team Providers Care Cd Mixer Name Role Phone Unavailable Primary Care Provider Unavailabl e Immunizations Immunization Administration Dates Next Due Covid-19, Mrna, Lnp-s, Pf, 30 Mcg/0.3 Ml Dose (P fizer) 07/06/2021 Social History Tobacco Use Types Packs/Day Years Used Date Smoking Tobacco: Never Assessed Sex and Gender Information Value Date Recorded Sex Assigned at Not on file Legal Sex Male 3:37 PM [employer] Gender Identity Not on file Sexual Orientation Not on file Plan of Treatment Health Maintenance Due Date Last Done Comments Hepatitis C Virus (HCV) Screening 1965 TdaP Immunization 1965 Hepatitis B Immunization (1 of 3 - 19+ 3-dose series) 01/08/1984 Colonoscopy 2010 Colorectal Cancer Screening 2010 Cologuard 2015 Immunochemical Fecal Occult Blood 2015 Pneumococcal Immunization (5 0+ years) (1 of 1 - PCV) 2015 Zoster Immunization (1 of 2) 2015 Influenza Immunization (#1) 2024 SARS-COV-2 Immunization ( season) 2024 07/06/2021 Respiratory Syncytial Virus (RSV) Immunization (Adult) (1 - 1-dose 75+ series) 01/08/2040 Meningococcal Immunization (ACWY) Aged Out No longer eligible based on patient's age to complete this topic Rotavirus Immunization Aged Out No lo nger eligible based on patient's age to complete this topic
--- OUTSIDE RECORDS SUMMARY | 2024-10-29 14:57 | XMS_ITS | CONTINUITY OF CARE DOCUMENT ---
Author Name brunomacielog Address Unknown Organization [facility] Address [address] [place] [address] [address] [place] [address] Phone [phone] Care Team Providers Care Metallurgical Tester Name Role Phone Víctor WATKINS, Boy Unavailable [phone] BERNARDINO STRICKLAND Unavailable INSURANCE PROVIDERS Payer name Policy type / Coverage type [place] red alliance party ID [facility] [employer] insurance [employer] [id number]
--- OUTSIDE RECORDS SUMMARY | 2024-10-29 14:57 | XMS_ITS | Clinical Summary ---
Author Organization [facility] Address [address] [place] [address] Care Team Providers Care Sewing Machine Operator Zipper Name Role Phone Rosalino Mccormick MD Primary Care Provider [phone] Source Comments [facility],non-owned Affiliates and Associated Physician Practices is amultiple site organization consisting of ambulatory clinics and hospital sitesin [place], [place], [place]. This disclosure is being madepursuant to the Care Everywhere program and may not contain all information available regarding this patient. Last updated 18.[facility] Allergies No known active allergies Medications * Be aware that medications may not be up to date on this document. Alwaysverify current medications with the patient. Medication Sig Dispensed Refills Start Date End Date Status metoprolol succinate XL 24hr (Toprol XL) 25 MG tablet Take 1 (one) tablet by mouth every morning 08/07/2023 Active lisinopril (Prinivil; Zestril) 2.5 MG tablet Take 1 (one) tablet by mouth once daily 08/12/2023 Active rosuvastatin (Crestor) 10 MG tablet Take 1 (one) tablet by mouth once daily 08/07/2023 Active aspirin (Aspirin) 81 MG chew tablet CHEW AND SWALLOW 1 TABLET BY MOUTH DAILY AT 8 AM 06/05/2023 Active Active Problems No known active problems Encounters Date Type Department Care Team Description 10/19/2024 10:50 AM CDT Office Visit [facility] - General Dermatology [address], [address] [place] [address] Luana Mccauley DO Multiple benign melanocytic nevi of both upper extremities, both lower extremities, and trunk (Primary Dx); Seborrheic keratoses; History of basal cell cancer; Lentigines; Estes angioma; Stasis dermatitis 10/19/2024 Travel 09/16/2024 Telephone [facility] - General Dermatology [address], [address] [place] [address] Luana Mccauley DO Appointment from Last 3 Months Family History Medical History Relation Name Comments Arthritis - Osteo Neg Hx Arthritis - Rheumatoid Neg Hx Asthma Neg Hx CAD (Coronary Artery Disease) Neg Hx Hypertension Neg Hx Migraine Neg Hx Seizures Neg Hx Thyroid Disease Neg Hx Social History Tobacco Use Types Packs/Day Years Used Date Smoking Tobacco: Never Passive Smoke Exposure: Never Smokeless Tobacco: Never Tobacco Cessation:Counseling Given: Not Answered Alcohol Use Standard Drinks/Week Comments Yes 0 (1 standard drink = 0.6 oz pur e alcohol) 2 per week Sex and Gender Information Value Date Recorded Sex Assigned at Not on file Gender Identity Not on file Sexual Orientation Not on file Plan of Treatment Upcoming Encounters Date Type Department Care Team (Late st Contact Info) Description 04/26/2025 10:40 AM CDT Office Visit [facility] - General Dermatology [address], [address] [place] [address] Luana Mccauley DO [address] [place] [address] Health Maintenance Due Date Last Done Comments COLOGUARD (AGES 45-75) - COL ON CA SCREENING 1965 COLON MONITORING 1965 COLONOSCOPY - COLON CA SCREENING 1965 CT COLONOGRAPHY - COLON CA SCREENING 1965 Colorectal Cancer Screening 1965 FIT - COLON CA SCREENING 1965 FLEX SIG - COLON CA SCREENING 1965 HIV SCREENING 01/08/1980 HEPATITIS C SCREENING 01/03/1983 DTAP/TDAP/TD VACCINES (1 - Tdap) 01/08/1984 HEPATITIS B VACCINE (1 of 3 - 19+ 3-dose series) 01/08/1984 PNEUMOCOCCAL VACCINE 50+ (1 of 1 - PCV) 2015 ZOSTER VACCINE (1 of 2) 2015 COVID-19 VACCINE (2 - 2023-2 5 season) 2024 07/06/2021 INFLUENZA VACCINE (#1) 2024 DEPRESSION SCREENING 08/04/2024 HIB VACCINE Aged Out No longer eligi ble based on patient's age to complete this topic HPV VACCINE Aged Out No longer eligi ble based on patient's age to complete this topic MENINGOCOCCAL (Group B) VACC INE SHARED DECISION-MAKING Aged Out No longer eligibl e based on patient's age to complete this topic MENINGOCOCCAL GROUPS A/C/Y/W VACCINE Aged Out No longer eligible b ased on patient's age to complete this topic Care Teams Sewing Machine Operator Zipper Relationship Specialty Start Date End Date Rosalino Mccormick MD [address] [place] [address] PCP - General 03/09/18
--- OUTSIDE RECORDS SUMMARY | 2024-10-29 14:57 | XMS_ITS | Referral Summary ---
Author Organization [facility] [place] [address] Address [address] [place] [address] Care Team Providers Care [employer] Certified Internetwork Expert Name Role Phone Rosalino Mccormick MD Primary Care Provider Allergies No known active allergies Medications nitroglycerin (NITROSTAT) 0.4 mg SL tablet as needed 11/10/2020 Active aspirin 81 mg chewable tablet CHEW AND SWALLOW 1 TABLET BY MOUTH DAILY AT 8 AM 90 tablet 3 03/22/2024 Active rosuvastatin (CRESTOR) 10 mg tablet TAKE 1 TABLET BY MOUTH DAILY 90 tablet 3 04/19/2024 Active metoprolol XL (TOPROL-XL) 25 mg extended release tablet TAKE 1 TABLET BY MOUTH EVERY MORNING 90 tablet 2 08/02/2024 Active lisinopriL (PRINIVIL,ZESTR IL) 2.5 mg tablet TAKE 1 TABLET BY MOUTH DAILY 90 tablet 2 09/07/2024 Active Active Problems Problem Noted Date Diagnosed Date STEMI involving left circumflex coronary artery 12/12/2020 Paroxysmal atrial fibrillation 12/12/2020 History of coronary artery stent placement 12/12 Social History Tobacco Use Types Packs/Day Years Used Date Smoking Tobacco: Never Smokeless Tobacco: Never Tobacco Cessation:Counseling Given: Not Answered Personal Safety Answer Date Recorded Getting School Help Needed Not on file 07/17 Sex and Gender Information Value Date Recorded Sex Assigned at Not on file Legal Sex Male 1:22 PM CDT Gender Identity Not on file Sexual Orientation Not on file Last Filed Vital Signs Vital Sign Reading Time Taken Comments Blood Pressure 112/60 03/18/2024 12:46 PM CDT Pulse 73 03/18/2024 12:46 PM CDT Temperature 36.9 C (98.4 F) 07/17/2023 10:37 AM [employer]TER [employer]PER[employer] Respiratory Rate 22 07/17/2023 10:3 7 AM [employer] Oxygen Saturation 98% 03/18/2024 12: 46 PM CDT Inhaled Oxygen Concentration - - Weight 103.1 kg (227 lb 6.4 oz) 024 12:46 PM CDT Height 180.3 cm (5' 11 ) 03/18/2024 12: 46 PM CDT Body Mass Index 31.72 03/18/2024 12:46 PM CDT Plan of Treatment Not on file Insurance Active[employer] OOS ActivePath OOS Care Teams [employer] Certified Internetwork Expert Relationship Specialty Start Date End Date Rosalino Mccormick MD [address] [facility] [address] [place] [address] PCP - General Family Medicine 11/07/20
--- OUTSIDE RECORDS SUMMARY | 2024-10-29 14:57 | XMS_ITS | Clinical Summary ---
Author Organization [facility] [place] [address] Address [address] [place] [address] Care Team Providers Care Solution Mixer Name Role Phone Rosalino Mccormick MD Primary [...] History of coronary artery stent placement 12/12 Surgical History Surgery Date Site/Laterality Comments TOTAL HIP ARTHROPLASTY CARDIAC STENT PLACEMENT CORONARY ANGIOPLASTY 11/07/2020 Medical History Medical History Date Comments STEMI (ST elevation myocardial infarction) (HCC) Coronary artery disease Family History Medical History Relation Name Comments No Known Problems Brother Heart disease Father Hypertension Father No Known Problems Mother No Known Problems Sister 1 No Known Problems Sister 2 Relation Name Status Comments Brother Alive Father Alive Mother Alive Sister 1 Alive Sister 2 Alive Social History Tobacco Use Types Packs/Day Years Used Date Smoking Tobacco: Never Smokeless Tobacco: Never Tobacco Cessation:Counseling Given: Not Answered Personal Safety Answer Date Recorded Getting School Help Needed Not on file 07/17 Sex and Gender Information Value Date Recorded Sex Assigned at Not on file Legal Sex Male 1:22 PM CDT Gender Identity Not on file Sexual Orientation Not on file Obstetrics History Last Filed Vital Signs Vital Sign Reading Time Taken Comments Blood Pressure 112/60 03/18/2024 12:46 PM CDT Pulse 73 03/18/2024 12:46 PM CDT Temperature 36.9 C (98.4 F) 07/17/2023 10:37 AM [employer] Respiratory Rate 22 07/17/2023 10:3 7 AM [employer] Oxygen Saturation 98% 03/18/2024 12: 46 PM CDT Inhaled Oxygen Concentration - - Weight 103.1 kg (227 lb 6.4 oz) 024 12:46 PM CDT Height 180.3 cm (5' 11 ) 03/18/2024 12: 46 PM CDT Body Mass Index 31.72 03/18/2024 12:46 PM CDT Plan of Treatment Health Maintenance Due Date Last Done Comments Colon Cancer Screening-Colonoscopy 1965 Depression Screening 1965 Hepatitis C Screening 1965 Prostate Cancer Screening-PSA 1965 DTaP/Tdap/Td Vaccine (1 - Tdap) 01/08/1976 Hepatitis B Screening 1983 Regular Well Visit/Exam 18-64 1983 Zoster Vaccine (1 of 2) 2015 Covid-19 Vaccine (4 - 2023-2 5 season) 2024 07/06/2021, 11/20/2020, 10/30/2020 Influenza Vaccine (#1) 2024 , 06/24/2019 Pneumococcal vaccine <65 Aged Out No longer eligible based on patient's age to complete this topic Insurance Cureatr OOS Cureatr OOS Care Teams Solution Mixer Relationship Specialty Start Date End Date Rosalino Mccormick MD [address] [facility] [[email or web address] [address] [place] [address] PCP - General Family Medicine 11/07/20
[2024-10-29 15:51] LABS: Alanine Aminotransferase 23 U/L (6-50); Albumin Level 4.2 g/dL (3.5-5.1); Alkaline Phosphatase 51 U/L (38-126); Aspartate Amino Transferase 25 U/L (17-59); Bilirubin,Total 0.9 mg/dL (0.2-1.3)
== END 2024-10-29 14:53 | disposition home or self-care (01) ==
LOC: ANHLAB 14:54
PROVIDERS: PCP Family Medicine; Visit Provider Physician Assistant Medical
DX: R17 Unspecified jaundice (principal)
CPT/HCPCS: 36415; 80076

== ENCOUNTER 2025-05-25 08:21 | Outpatient (CLI) | payer OTHER, SELFPAY ==
[2025-05-25 09:29] LABS: Hematocrit 46.9 % (42.0-52.0); Hemoglobin 15.5 g/dL (14.0-18.0); Immature Granulocyte Percent A 0.2 % (0-0.5); Lymphocytes Absolute Auto 1.91 K/mm3 (0.9-3.2); Mean Corpuscular HGB Conc 33.0 g/dl (32-36); Mean Corpuscular Hemoglobin 29.7 pg (26-34); Mean Corpuscular Volume 89.8 fl (80-100); Nucleated Red Blood Cells Absolute Auto 0.000 K/mm3 (0.0-0.012); Nucleated Red Blood Cells Perc 0.0 % (0.0-0.2); Platelet Count Result 273 k/mm3 (150-375); Red Blood Count 5.22 M/mm3 (4.6-6.20); White Blood Count 6.0 K/mm3 (4.5-10.0)
[2025-05-25 10:05] LABS: Alanine Aminotransferase 25 U/L (6-50); Albumin Level 4.6 g/dL (3.5-5.1); Alkaline Phosphatase 44 U/L (38-126); Anion Gap 8 mmol/L (4-12); Aspartate Amino Transferase 41 U/L (17-59); Bilirubin,Total 1.3 mg/dL (0.2-1.3); Blood Urea Nitrogen 12 mg/dL (9-20); Calcium 8.8 mg/dL (8.4-10.2); Carbon Dioxide 27 mmol/L (22-30); Chloride 103 mmol/L (98-107); Cholesterol 140 mg/dL (0-200); Estimated Glomerular Filt Rate > 60; Glucose 94 mg/dL (65-110); HDL Direct 37 mg/dL; Potassium 4.2 mmol/L (3.4-5.0); Sodium 138 mmol/L (137-145); Total Protein 7.4 g/dL (6.3-8.2); Triglycerides 90 mg/dL (<150)
[2025-05-25 10:33] LABS: Prostate Specific Antigen 1.0 ng/mL (< OR = 4.0)
== END 2025-05-25 08:22 | disposition home or self-care (01) ==
LOC: ANHLAB 08:27
PROVIDERS: PCP Family Medicine; Visit Provider Student in an Organized Health Care Education/Training Program
DX: E78.5 Hyperlipidemia, unspecified (principal); I10 Essential (primary) hypertension; Z12.5 Encounter for screening for malignant neoplasm of prostate
CPT/HCPCS: 36415; 80053; 80061; 84153; 85025; G0103